=== PATIENT | male | born 1955 | race Caucasian/White ===

== ENCOUNTER 2018-11-02 20:44 | Emergency (ER) | payer SELFPAY ==
[2018-11-02 20:44] VITALS: BP 164/100; PULSE 104; RESP 22; TEMP 36; O2SAT 96; BMI 32.0
--- NOTE | 2018-11-02 21:08 | CT_ITS ---
STUDY: CT BRAIN WITHOUT CONTRAST REASON FOR EXAM: Male, 63 years old. Fall. Hit left eye laterally. RADIATION DOSAGE (If Supplied By Facility): CTDIvol = ( 44.99 ) mGy, DLP = ( 796.11 ) mGycm TECHNIQUE: Transaxial CT imaging of the brain was performed without administration of intravenous contrast material. Individualized dose optimization techniques were used for this CT. COMPARISON: February 25, 2016 FINDINGS: Normal soft tissue structures. Normal calvarium. Normal size ventricles and extra-axial spaces for the patient's age. Normal white matter tracts of the cerebral hemispheres. Normal basal ganglia and thalami. Normal brainstem. Normal cerebellum. There is no intracranial hemorrhage. There are no findings of an acute ischemic infarction. There is near complete opacification of the visualized left maxillary sinus. There is a rounded opacity within the visualized right maxillary sinus. CT/Brain/Head without Contrast IMPRESSION: No acute intracranial process. Opacification of the left maxillary sinus consistent with a history of sinusitis. Rounded opacity within the right maxillary sinus likely reflects a mucous retention cyst or polyp. Electronically Signed: Mckenna Ordonez MD at 21:51 EDT Tel , Service support ,
--- NOTE | 2018-11-02 21:09 | EKG12_ITS ---
Test Reason : HEAD INJURY Blood Pressure : / mmHG Vent. Rate : 091 BPM Atrial Rate : 091 BPM P-R Int : 138 ms QRS Dur : 080 ms QT Int : 330 ms P-R-T Axes : 031 -23 -68 degrees QTc Int : 405 ms Normal sinus rhythm ST & T wave abnormality, consider lateral ischemia Abnormal ECG Confirmed by NELSON LY, BEVERLY ([id number]), director sales and marketing TRICIA CAM ([id number] on 11/04/2018 4:23:32 PM Referred By: SHANT Confirmed By:BEVERLY DAMON MD
--- NOTE | 2018-11-02 21:09 | RAD_ITS ---
STUDY: X-RAY CHEST REASON FOR EXAM: Male, 63 years old. Passed out and fell after coughing fit. TECHNIQUE: Single frontal view of the chest. COMPARISON: January 29, 2016. FINDINGS: There is no new focal consolidation. Normal size heart. Normal mediastinum and toño. Normal visualized pulmonary arteries. Normal visualized aortic arch and descending thoracic aorta. There are diffuse degenerative changes of the visualized thoracic spine. There is a stable left posterior rib deformity consistent with a healed fracture. There is no demonstrated abnormality of the visualized soft tissue structures of the upper abdomen. RAD/Chest 1 View (Portable) IMPRESSION: No acute cardiopulmonary process. Electronically Signed: Mckenna Ordonez MD at 22:13 EDT Tel , Service support ,
[2018-11-02 21:24] LABS: Absolute Lymphocyte Count 3.22 X10^3/ul (0.83-4.51); Absolute Neutrophil Count 5.3 X10^3/uL (2.0-7.7); Basophil# 0.04 X10^3/uL; Basophil% 0.4 % (0-1); Eosinophil# 0.32 X10^3/uL; Eosinophils% 3.3 % (0-5); Hematocrit 40.4 % (40-54); Lymphocyte # 3.22 X10^3/ul (4.0); Lymphocyte % 33.2 % (19-41); Mean Corp Hgb Conc 32.2 g/gl (32-36); Mean Corpuscular Hgb 30.2 pg (27.0-32.0); Mean Platelet Vol. 9.2 fl (6.2-12.0); Monocyte# 0.84 X10^3/uL; Monocyte% 8.7 % (0-10); Neutrophil # 5.27 X10^3/uL (2.7-7.7); Neutrophil % 54.2 % (47-70); Platelet Count 313 K/mm3 (150-450); RBC Distribution Width CV 13.2 % (11.6-14.6); White Blood Count 9.7 K/mm3 (4.4-11.0)
[2018-11-02 21:29] LABS: POSITIVE COUNT NO; POSITIVE DIFFERENTIAL NO; POSITIVE MORPHOLOGY NO
[2018-11-02 22:02] LABS: Anion Gap 4 (5-15); BUN 14 mg/dL (7-18); BUN/Creat Ratio 12.3 RATIO (10-20); Calcium,Total 8.7 mg/dL (8.5-10.1); Chloride 105 mmol/L (98-107); Creatinine, Serum 1.14 mg/dL (0.70-1.30); EST Glomerular Filtration Rate 69 mL/min (>60); Est Glom Filt Rate - Afr Amer 84 mL/min (>60); Estimated Creatinine Clearance 63.62 ml/min; Glucose 104 mg/dL (74-106); Potassium 3.5 mmol/L (3.5-5.1); Sodium Level 138 mmol/L (136-145)
--- NOTE | 2018-11-02 22:54 | ED.VISSUMM ---
- ER Visit Summary Date of Service: 11/02/18 Chief Complaint: Fall History of Present Illness: The patient is a 63 M who fell today. This was after a coughing fit. He has a history of COPD and coughs frequently. He was sitting and then after coughing, he fell forward. He hit his head. He regained consciousness spontaneously. No other injuries or complaints. This has happened before after coughing episodes. He is denying any chest pain or shortness of breath. Denies any other symptoms Physical Examination: Afebrile and vital signs unremarkable. He has a 2 cm laceration over his left lateral eyebrow. His eye is unremarkable otherwise. HEENT exam otherwise unremarkable. Neck is nontender. Heart regular. Lungs clear. Skin appears normal otherwise. Cranial nerves grossly intact. Moves all extremities. No focal or lateralizing neurologic abnormalities grossly. Test Results: EKG shows sinus rhythm with a rate of 91. Nonspecific ST and T wave changes concerning for lateral ischemia, similar to prior EKG. Chest x-ray showed no acute abnormalities. CT brain showed sinusitis but no other acute pathology. CBC, metabolic panel, troponin normal. Emergency Department Course and Treatment: Patient presents after syncope. It was likely brought on from a coughing fit secondary to his COPD. Workup was unremarkable. Laceration was anesthetized with lidocaine, cleaned, explored, and sutured with 4 simple interrupted sutures. Patient was educated about suture care and will follow-up in 7 days for removal. I recommended admission for syncope. Patient declined admission and would like to follow-up as an outpatient. I advised that he can return at any time if he changes his mind. Treatment Plan: As above Disposition: Discharge Impression: 1. Cough 2. Syncope 3. Left eyebrow laceration 2 cm, simple This note was generated with [employer] dictation software. It may contain incorrect words, spelling, and punctuation that were not noted in review of the chart prior to signing ED Disposition - Plan for ED Patient: Referrals: Vickie Maya,Yaquelin Chery [Primary Care Provider] -
--- NOTE | 2018-11-02 22:58 | ED.DEP ---
ED Disposition - Plan for ED Patient: Instructions: ED Laceration All Referrals: Yaquelin Brown [Primary Care Provider] - 1 Week
[2018-11-02 23:07] VITALS: BP 144/98; PULSE 86; RESP 18; O2SAT 96
== END 2018-11-02 23:08 | disposition home or self-care (01) ==
PROVIDERS: Emergency Provider Emergency Medicine
DX: S01.112A Laceration without foreign body of left eyelid and periocular area, initial encounter (principal); W07.XXXA Fall from chair, initial encounter; Y93.89 Activity, other specified; Y92.9 Unspecified place or not applicable; R55 Syncope and collapse; J44.9 Chronic obstructive pulmonary disease, unspecified; I10 Essential (primary) hypertension; Z79.899 Other long term (current) drug therapy; Z72.0 Tobacco use
CPT/HCPCS: 12011; 70450; 71045; 80048; 84484; 85025; 93005; 99285; A4216

== ENCOUNTER 2019-01-19 09:08 | Inpatient (IN) | payer MEDICAID, SELFPAY ==
[2019-01-19] VITALS (36 sets, daily range): BP systolic 121–157; BP diastolic 69–106; PULSE 83–111; RESP 12–39; TEMP 36.4–37.1; O2SAT 84–98; BMI 31.6; BMI 31.1
--- NOTE | 2019-01-19 09:26 | RAD_ITS ---
STUDY: X-RAY CHEST REASON FOR EXAM: Male, 63 years old. Injected cough wheezing TECHNIQUE: Single AP portable view of the chest. COMPARISON: October 23, 2018, January 29, 2016 FINDINGS: There is a pattern of hyperlucency in the upper lung zones and increased linear markings in the lower lung zone suggestive of underlying chronic lung disease. Allowing for summation of shadows there is a nodular density within the right lower lobe that measures 8 mm. There is no demonstrated pleural abnormality. Normal size heart. Normal mediastinum and toño. Normal visualized pulmonary arteries. Normal visualized aortic arch and descending thoracic aorta. There are diffuse degenerative changes of the visualized thoracic spine. Normal visualized ribs, clavicles, and shoulders. There is no demonstrated abnormality of the visualized soft tissue structures of the upper abdomen. RAD/Chest 1 View (Portable) IMPRESSION: Findings suspicious for underlying emphysematous change chronic lung disease, there is a suggestion of a newly visualized nodule in the right lower lobe versus summation of shadows that measures 7.7 mm. Consider follow-up noncontrast CT chest for further evaluation of this and the lung parenchyma. There is no visualized new focal consolidation. Electronically Signed: Lian Torres MD at 9:53 EDT Tel , Service support ,
--- NOTE | 2019-01-19 09:27 | EKG12_ITS ---
Test Reason : SOB Blood Pressure : / mmHG Vent. Rate : 110 BPM Atrial Rate : 110 BPM P-R Int : 124 ms QRS Dur : 100 ms QT Int : 330 ms P-R-T Axes : 049 -81 092 degrees QTc Int : 446 ms Sinus tachycardia Possible Left atrial enlargement Left anterior fascicular block ST depression, consider subendocardial injury Abnormal QRS-T angle, consider primary T wave abnormality Abnormal ECG Confirmed by NELSON LY, BEVERLY ([id number]), fashion editor RIK NOVA ([id number]) on 01/20/2019 11:48:15 AM Referred By: BAMBI Confirmed By:BEVERLY DAMON MD
[2019-01-19] MEDS: MethylPREDNISolone 125 MG/2 ML Vial IV (09:33)
[2019-01-19] MEDS: Ipratropium/Albuterol Sulfate 3 ML AMPUL.NEB INHALATION ×4 (09:34→22:22)
[2019-01-19] MEDS: Albuterol 2.5 MG/3 ML VIAL.NEB. INHALATION ×2 (09:34)
[2019-01-19 09:36] LABS: Allen Test POS; Base Excess -2 mmol/L (-2 to +2); Bicarbonate 23.1 mmol/L (22-26); Blood Gas Specimen Type ART; O2 Delivery Device Nasal Can; PO2 93 mmHG (75-100); SITE R Radial; SO2 97 % (95-99); Time Given 922; Total Carbon Dioxide 24 mmol/L; pCO2 40.7 mmHg (35-45); pH 7.36 (7.35-7.45)
--- NOTE | 2019-01-19 09:36 | ED.VIS.GEN ---
History of Present Illness Chief Complaint: Shortness of Breath Informant: Patient, Family Onset: Days Context: Gradual Onset Timing: Continuous Quality: Increasing shortness of breath with productive cough Location: Not applicable Current Severity: Severe Maximum Severity: Severe Worsened by: Any activity Relieved by: Nothing Associated Symptoms: Productive cough and dyspnea on exertion Narrative: Patient is a 63-year-old male with history of hypertension, COPD who quit smoking 1 week ago presents with increased shortness of breath. He reports productive cough. He denies fever, chills night sweats. Denies rhinorrhea, congestion, postnasal drainage. Denies sore throat or change in voice. Denies ringing in his ears, decreased hearing or ear pain. He denies any ocular visual symptoms. He denies leg pain, swelling or discoloration. He denies history of PE or DVT. He was seen at [facility] 2 months ago and had a nuclear stress test that was negative. Prior similar symptoms: No Recent Illness/Hospitalization: Yes - 2 months ago [facility] - Past Medical History (1) Tobacco user Status: Chronic (2) Hypertension Status: Chronic (3) COLD (chronic obstructive lung disease) Status: Chronic Past Medical History - Allergies and Home Meds Allergies/Adverse Reactions: Allergies No Known Allergies Allergy (Verified 01/19/19 09:09) Primary Care Physician: Yaquelin Brown [Primary Care Provider] - Prior records reviewed: Yes Surgical History: herniorrhaphy Lives: With Family Smoking Status: Former smoker Alcohol: None Drugs: None Review of Systems General: Denies: Chills, Fever, Sweats Eyes: Denies: Visual changes - bilaterally, Blurred Vision - bilaterally, Diplopia ENT: Denies: Rhinorrhea, Sore throat Cardiovascular: Denies: Chest pain, Palpitations Respiratory: Reports: Dyspnea, Cough, Sputum, Dyspnea on exertion. Denies: Orthopnea, Paroxysmal nocturnal dyspnea, -, - Gastrointestinal: Denies: Abdominal pain, Nausea, Vomiting, Diarrhea, Melena, Hematochezia Genitourinary: Denies: Dysuria, Hematuria, Frequency Musculoskeletal: Denies: Back pain, Extremity Pain Skin: Denies: Rash, Wounds Neurological: Denies: Headache, Weakness, Numbness Hematologic: Denies: Easy bruising, Easy bleeding Allergy: Denies: Uticaria, Swelling of the mouth Physical Exam Vital Signs/Narrative: Vital Signs Temp Pulse Resp BP Pulse Ox 01/19/19 09:30 94 01/19/19 09:29 97 01/19/19 09:14 95 01/19/19 09:09 98.8 F 111 H 39 H 156/106 H 84 Inital Vital Signs reviewed: Yes - Paradoxical breathing noted General: Well nourished, Well developed, Obese, Acute Distress Head: Normocephalic, Atraumatic Eyes: Perrl, EOMI ENT: Moist mucous membranes, No rhinorrhea Neck: Supple, Nontender Cardiovascular: Regular rate, Regular rhythm, No murmurs Respiratory: Chest nontender, Wheezing, Diminished, Decreased Air Movement, - - Use of accessory muscles and paradoxical breathing. Negative for: No distress, CTA bilaterally Abdomen: Soft, Nontender, Nondistended, Normal bowel sounds, No masses Back: Nontender, Normal Inspection Extremities: Nontender, No edema Skin: Normal color, No rash, Diaphoresis, No Trauma. Negative for: Cyanosis, Jaundice Neurological: Alert, Oriented x3, Cranial nerves II-XII grossly intact, Normal Strength, Normal Sensation Psychological: Normal affect, Normal Mood Diagnostic/Tx/Re-eval Chest X-Ray - ED: 1 View, Read by ED Physician, Unchanged, Normal, Heart, Mediastinum, Bony Structures, No Acute Disease, Chronic Changes Impressions Chest X-Ray 01/19/19 09:26 IMPRESSION: Findings suspicious for underlying emphysematous change chronic lung disease, there is a suggestion of a newly visualized nodule in the right lower lobe versus summation of shadows that measures 7.7 mm. Consider follow-up noncontrast CT chest for further evaluation of this and the lung parenchyma. There is no visualized new focal consolidation. Electronically Signed: Lian Torres MD at 9:53 EDT Tel , Service support , 01/19/19 09:26 Chest 1 View (Portable) [RAD] Stat Laboratory Results 01/19/19 01/19/19 01/19/19 09:13 09:13 09:13 WBC 13.5 H RBC 4.90 Hgb 14.9 Hct 44.6 MCV 91.0 MCH 30.4 MCHC 33.4 RDW 13.6 RDW Differential 44.9 H Plt Count 239 MPV 9.8 Specimen Type Sample Site pH Bicarbonate Actual POC Total CO2 Base Excess O2 Saturation ABG pCO2 ABG pO2 Steven Test O2 Delivery Device Liter Flow Blood Gas Notified Whom Blood Gas Notified Time Sodium 135 L Potassium 4.0 Chloride 101 Carbon Dioxide 25.0 Anion Gap 9 BUN 13 Creatinine 1.08 Estim Creat Clear Calc 67.15 Est GFR (MDRD) Af Amer 89 Est GFR (MDRD) Non-Af 74 BUN/Creatinine Ratio 12.0 Glucose 103 Lactic Acid 0.9 Calcium 8.4 L Total Bilirubin 0.50 AST 28 ALT 25 Alkaline Phosphatase 66 Troponin I < 0.015 Total Protein 7.5 Albumin 3.3 Globulin 4.2 Albumin/Globulin Ratio 0.8 L 01/19/19 09:29 WBC RBC Hgb Hct MCV MCH MCHC RDW RDW Differential Plt Count MPV Specimen Type ART Sample Site R Radial pH 7.36 Bicarbonate Actual 23.1 POC Total CO2 24 Base Excess -2 O2 Saturation 97 ABG pCO2 40.7 ABG pO2 93 Steven Test POS O2 Delivery Device Nasal Can Liter Flow 3.0 Blood Gas Notified Whom ED MD Blood Gas Notified Time 922 Sodium Potassium Chloride Carbon Dioxide Anion Gap BUN Creatinine Estim Creat Clear Calc Est GFR (MDRD) Af Amer Est GFR (MDRD) Non-Af BUN/Creatinine Ratio Glucose Lactic Acid Calcium Total Bilirubin AST ALT Alkaline Phosphatase Troponin I Total Protein Albumin Globulin Albumin/Globulin Ratio - Medical Decision Making With history of COPD productive cough wheezing and respiratory distress will obtain ABG to assess acid base status as well as CO2. Chest x-rays obtained to assess for pneumonia and pneumothorax. EKG to evaluate for cardiac ischemia. Appropriate blood work to assess white count, H&H, renal function. He was treated with DuoNeb and 3 albuterol treatments. He also received Solu-Medrol IV push. ABG reveals a pH of 7.36, PCO2 of 40.7, PaO2 of 93 and bicarb of 23.1 on 3 L by nasal cannula. This reveals an AA gradient and one would expect CO2 to be much higher than 40.7 in light of him breathing 40 times a minute. Patient has received all aerosol treatments. He still has paradoxical breathing. Will place on BiPAP and contact hospitalist for admission. Since he has a productive cough will treat with antibiotics. Since he is in respiratory distress will give antibiotics intravenously. Troponin was normal. EKG revealed no acute process. Lactate was normal. - Critical Care Time Critical care time (excluding procedures): 30-74 minutes - 32 minutes, Discussing w/Patient &/or Family/Food Inspector, Discussing w/Consultants, Arranging Admission or Transfer ED Disposition - Plan for ED Patient: Disposition: Acute Care Hospital [facility] Diagnosis: Acute respiratory failure with hypoxia, Acute exacerbation of chronic obstructive pulmonary disease (COPD) Referrals: Vickie Maya,Yaquelin Chery [Primary Care Provider] -
[2019-01-19 09:38] LABS: Hematocrit 44.6 % (40-54); Hemoglobin 14.9 g/dl (13.0-16.5); Mean Corp Hgb Conc 33.4 g/gl (32-36); Mean Corpuscular Hgb 30.4 pg (27.0-32.0); Mean Platelet Vol. 9.8 fl (6.2-12.0); Platelet Count 239 K/mm3 (150-450); RBC Distribution Width CV 13.6 % (11.6-14.6); RBC Distribution Width SD 44.9 fl (35.1-43.9); White Blood Count 13.5 K/mm3 (4.4-11.0)
[2019-01-19 09:40] LABS: Scan Indicated on CBC? Y/N NO
--- NOTE | 2019-01-19 09:41 | ED.DCSUM_ITS ---
History of Present Illness Chief Complaint: Shortness of Breath Informant: Patient, Family Onset: Days Context: Gradual Onset Timing: Continuous Quality: Increasing shortness of breath with productive cough Location: Not applicable Current Severity: Severe Maximum Severity: Severe Worsened by: Any activity Relieved by: Nothing Associated Symptoms: Productive cough and dyspnea on exertion Narrative: Patient is a 63-year-old male with history of hypertension, COPD who quit smoking 1 week ago presents with increased shortness of breath. He reports productive cough. He denies fever, chills night sweats. Denies rhinorrhea, congestion, postnasal drainage. Denies sore throat or change in voice. Denies ringing in his ears, decreased hearing or ear pain. He denies any ocular visual symptoms. He denies leg pain, swelling or discoloration. He denies history of PE or DVT. He was seen at [facility] 2 months ago and had a nuclear stress test that was negative. Prior similar symptoms: No Recent Illness/Hospitalization: Yes - 2 months ago [facility] - Past Medical History (1) Tobacco user Status: Chronic (2) Hypertension Status: Chronic (3) COLD (chronic obstructive lung disease) Status: Chronic Past Medical History - Allergies and Home Meds Allergies/Adverse Reactions: Allergies No Known Allergies Allergy (Verified 01/19/19 09:09) Primary Care Physician: Yaquelin Brown [Primary Care Provider] - Prior records reviewed: Yes Surgical History: herniorrhaphy Lives: With Family Smoking Status: Former smoker Alcohol: None Drugs: None Review of Systems General: Denies: Chills, Fever, Sweats Eyes: Denies: Visual changes - bilaterally, Blurred Vision - bilaterally, Diplopia ENT: Denies: Rhinorrhea, Sore throat Cardiovascular: Denies: Chest pain, Palpitations Respiratory: Reports: Dyspnea, Cough, Sputum, Dyspnea on exertion. Denies: Orthopnea, Paroxysmal nocturnal dyspnea, -, - Gastrointestinal: Denies: Abdominal pain, Nausea, Vomiting, Diarrhea, Melena, Hematochezia Genitourinary: Denies: Dysuria, Hematuria, Frequency Musculoskeletal: Denies: Back pain, Extremity Pain Skin: Denies: Rash, Wounds Neurological: Denies: Headache, Weakness, Numbness Hematologic: Denies: Easy bruising, Easy bleeding Allergy: Denies: Uticaria, Swelling of the mouth Physical Exam Vital Signs/Narrative: Vital Signs Temp Pulse Resp BP Pulse Ox 01/19/19 09:30 94 01/19/19 09:29 97 01/19/19 09:14 95 01/19/19 09:09 98.8 F 111 H 39 H 156/106 H 84 Inital Vital Signs reviewed: Yes - Paradoxical breathing noted General: Well nourished, Well developed, Obese, Acute Distress Head: Normocephalic, Atraumatic Eyes: Perrl, EOMI ENT: Moist mucous membranes, No rhinorrhea Neck: Supple, Nontender Cardiovascular: Regular rate, Regular rhythm, No murmurs Respiratory: Chest nontender, Wheezing, Diminished, Decreased Air Movement, - - Use of accessory muscles and paradoxical breathing. Negative for: No distress, CTA bilaterally Abdomen: Soft, Nontender, Nondistended, Normal bowel sounds, No masses Back: Nontender, Normal Inspection Extremities: Nontender, No edema Skin: Normal color, No rash, Diaphoresis, No Trauma. Negative for: Cyanosis, Jaundice Neurological: Alert, Oriented x3, Cranial nerves II-XII grossly intact, Normal Strength, Normal Sensation Psychological: Normal affect, Normal Mood Diagnostic/Tx/Re-eval Chest X-Ray - ED: 1 View, Read by ED Physician, Unchanged, Normal, Heart, Mediastinum, Bony Structures, No Acute Disease, Chronic Changes Impressions Chest X-Ray 01/19/19 09:26 IMPRESSION: Findings suspicious for underlying emphysematous change chronic lung disease, there is a suggestion of a newly visualized nodule in the right lower lobe versus summation of shadows that measures 7.7 mm. Consider follow-up noncontrast CT chest for further evaluation of this and the lung parenchyma. There is no visualized new focal consolidation. Electronically Signed: Lian Torres MD at 9:53 EDT Tel , Service support , 01/19/19 09:26 Chest 1 View (Portable) [RAD] Stat Laboratory Results 01/19/19 01/19/19 01/19/19 09:13 09:13 09:13 WBC 13.5 H RBC 4.90 Hgb 14.9 Hct 44.6 MCV 91.0 MCH 30.4 MCHC 33.4 RDW 13.6 RDW Differential 44.9 H Plt Count 239 MPV 9.8 Specimen Type Sample Site pH Bicarbonate Actual POC Total CO2 Base Excess O2 Saturation ABG pCO2 ABG pO2 Steven Test O2 Delivery Device Liter Flow Blood Gas Notified Whom Blood Gas Notified Time Sodium 135 L Potassium 4.0 Chloride 101 Carbon Dioxide 25.0 Anion Gap 9 BUN 13 Creatinine 1.08 Estim Creat Clear Calc 67.15 Est GFR (MDRD) Af Amer 89 Est GFR (MDRD) Non-Af 74 BUN/Creatinine Ratio 12.0 Glucose 103 Lactic Acid 0.9 Calcium 8.4 L Total Bilirubin 0.50 AST 28 ALT 25 Alkaline Phosphatase 66 Troponin I < 0.015 Total Protein 7.5 Albumin 3.3 Globulin 4.2 Albumin/Globulin Ratio 0.8 L 01/19/19 09:29 WBC RBC Hgb Hct MCV MCH MCHC RDW RDW Differential Plt Count MPV Specimen Type ART Sample Site R Radial pH 7.36 Bicarbonate Actual 23.1 POC Total CO2 24 Base Excess -2 O2 Saturation 97 ABG pCO2 40.7 ABG pO2 93 Steven Test POS O2 Delivery Device Nasal Can Liter Flow 3.0 Blood Gas Notified Whom ED MD Blood Gas Notified Time 922 Sodium Potassium Chloride Carbon Dioxide Anion Gap BUN Creatinine Estim Creat Clear Calc Est GFR (MDRD) Af Amer Est GFR (MDRD) Non-Af BUN/Creatinine Ratio Glucose Lactic Acid Calcium Total Bilirubin AST ALT Alkaline Phosphatase Troponin I Total Protein Albumin Globulin Albumin/Globulin Ratio - Medical Decision Making With history of COPD productive cough wheezing and respiratory distress will obtain ABG to assess acid base status as well as CO2. Chest x-rays obtained to assess for pneumonia and pneumothorax. EKG to evaluate for cardiac ischemia. Appropriate blood work to assess white count, H&H, renal function. He was treated with DuoNeb and 3 albuterol treatments. He also received Solu- Medrol IV push. ABG reveals a pH of 7.36, PCO2 of 40.7, PaO2 of 93 and bicarb of 23.1 on 3 L by nasal cannula. This reveals an AA gradient and one would expect CO2 to be much higher than 40.7 in light of him breathing 40 times a minute. Patient has received all aerosol treatments. He still has paradoxical breathing. Will place on BiPAP and contact hospitalist for admission. Since he has a productive cough will treat with antibiotics. Since he is in respiratory distress will give antibiotics intravenously. Troponin was normal. EKG revealed no acute process. Lactate was normal. - Critical Care Time Critical care time (excluding procedures): 30-74 minutes - 32 minutes, Discussing w/Patient &/or Family/Field Mechanic/Site Lead, Discussing w/Consultants, Arranging Admission or Transfer ED Disposition - Plan for ED Patient: Disposition: Acute Care Hospital [facility] Diagnosis: Acute respiratory failure with hypoxia, Acute exacerbation of chronic obstructive pulmonary disease (COPD) Referrals: Vickie Maya,Yaquelin Chery [Primary Care Provider] -
[2019-01-19 09:52] LABS: ALB/GLOB Ratio 0.8 RATIO (0.9-2.4); AST(SGOT) 28 U/L (15-37); Alanine Aminotransfer ALT/SGPT 25 U/L (16-61); Albumin, Serum 3.3 g/dL (3.2-5.0); Alkaline Phosphatase 66 U/L (45-117); Anion Gap 9 (5-15); BUN 13 mg/dL (7-18); Calcium,Total 8.4 mg/dL (8.5-10.1); Chloride 101 mmol/L (98-107); Creatinine, Serum 1.08 mg/dL (0.70-1.30); EST Glomerular Filtration Rate 74 mL/min (>60); Est Glom Filt Rate - Afr Amer 89 mL/min (>60); Estimated Creatinine Clearance 67.15 ml/min; Globulin 4.2 g/dL (2.2-4.2); Glucose 103 mg/dL (74-106); Protein, Total 7.5 g/dL (6.4-8.2); Sodium Level 135 mmol/L (136-145)
[2019-01-19 09:54] LABS: Lactic Acid 0.9 mmol/L (0.4-2.0)
--- NOTE | 2019-01-19 11:49 | HP.PCM_ITS ---
Problem List (1) Acute respiratory failure with hypoxia Status: Acute (2) Acute exacerbation of chronic obstructive pulmonary disease (COPD) Status: Chronic (3) Hypertension Status: Chronic History of Present Illness Date of Admission: 01/19/19 Chief Complaint: Shortness of breath The patient is a 63 year old M with PMH as below who presents with shortness of breath, and diaphoresis since last night. He states that he used to be a smoker but he is quit 1 week ago and has a history of COPD and was tried using inhalers last night and felt that he might be getting worse and so this morning he presented to the ER. He states that he is significantly short of breath and it was noted that he was having increased work of breathing when he was here in the ER. Chest x-ray demonstrated a possible nodule measuring around 8 mm. He has slight leukocytosis to 13.5 but no other signs of infection, ABG was unremarkable and his other lab work appeared to be normal. He was placed on BiPAP in the ER for significant work of breathing. He denies any recent illnesses or upper respiratory infections. Past Medical History Past Medical History (Chronic Problems): Chronic Problems Acute exacerbation of chronic obstructive pulmonary disease (COPD) (Chronic) Tobacco user (Chronic) Hypertension (Chronic) COLD (chronic obstructive lung disease) (Chronic) Allergies No Known Allergies Allergy (Verified 01/19/19 09:09) Home Medications: Ambulatory Orders Medication Instructions Recorded Albuterol Aerosols [Ventolin 2.5 mg INHALATION Q6H PRN PRN 11/02/18 Aerosols] Cholecalciferol (VIT D3) [Vitamin 1,000 unit PO BID 11/02/18 D] Fluticasone 0.05% [Flonase Nasal 1 spray NASAL DAILY 11/02/18 [place]] Lisinopril/Hydrochlorothiazide 1 each PO DAILY 11/02/18 [Lisinopril-Hctz 20-12.5 mg Tab] Loratadine [Claritin] 10 mg PO DAILY 11/02/18 Omeprazole [Prilosec] 20 mg PO DAILY 11/02/18 Aspirin [Aspirin, Baby] 81 mg PO DAILY@0800 01/19/19 Budesonide Aerosol [Pulmicort 0.5 mg INHALATION DAILY 01/19/19 Aerosol] Surgical History: herniorrhaphy Lives: With Family Smoking Status: Former smoker Tobacco Use: Cigarettes Alcohol: None Drugs: None - *Family History Maternal History Items: Heart Disease Paternal History Items: Stroke Review of Systems Constitutional: Denies: Chills, Fever, Weight Change HEENT: Denies: Head Aches, Sinus Congestion, Sinus Drainage Cardiovascular: Denies: Chest Pain, Palpitations Respiratory: Reports: Cough, Shortness of Breath, Sputum production. Denies: Shortness of breath at rest Gastrointestinal: Denies: Abdominal Pain, Nausea, Vomiting Genitourinary: Denies: Dysuria Musculoskeletal: Denies: Joint Pain, Joint Tenderness Skin: Denies: Rash, Wounds Neurological: Denies: Numbness, Tingling, Focal weakness Psychiatric: Denies: Anxiety, Depression Hematologic/ Lymphatic: Denies: Easy Bruising, Easy Bleeding VTE Information - Inpt Only VTE Present on Admission: No Patient Problems: Active and Suspected Problems Acute respiratory failure with hypoxia (Acute) - Physical Exam General: Alert, Oriented x3, Cooperative, - - Mild distress HEENT: Atraumatic, PERRLA, EOMI, Normocephalic Oral: Dry Mucosa Neck: Supple, No JVD Lungs: Diminished, Short of Breath, Tachypneic, Using Accessory Muscles, Wheezes Cardiovascular: Regular Rhythm, Normal S1, Normal S2, No murmurs, Tachycardic Abdomen: Soft, Non Tender, Non-Distended, No Hepato-splenomegaly Extremities: No edema, Capillary Refill Less than 3 Seconds Skin: No rashes, No breakdown Neurological: Neuro grossly intact, Sensory exam intact to light touch and pain Psych/Mental Status: Normal Affect, Appropriate Vital Signs Temp Pulse Resp BP Pulse Ox 98.7 F 103 H 23 H 136/90 H 95 01/19/19 10:25 01/19/19 10:46 01/19/19 10:46 01/19/19 10:46 01/19/19 10:46 Oxygen Flow Rate (L/min) 3 Oxygen Delivery Method Bi-pap Weight: 198 lb 13.711 oz Body Mass Index (BMI) 31.1 Laboratory Tests Past 24 Hrs 01/19/19 01/19/19 01/19/19 09:13 09:13 09:13 WBC 13.5 H RBC 4.90 Hgb 14.9 Hct 44.6 MCV 91.0 MCH 30.4 MCHC 33.4 RDW 13.6 RDW Differential 44.9 H Plt Count 239 MPV 9.8 Specimen Type Sample Site pH Bicarbonate Actual POC Total CO2 Base Excess O2 Saturation ABG pCO2 ABG pO2 Steven Test O2 Delivery Device Liter Flow Blood Gas Notified Whom Blood Gas Notified Time Sodium 135 L Potassium 4.0 Chloride 101 Carbon Dioxide 25.0 Anion Gap 9 BUN 13 Creatinine 1.08 Estim Creat Clear Calc 67.15 Est GFR (MDRD) Af Amer 89 Est GFR (MDRD) Non-Af 74 BUN/Creatinine Ratio 12.0 Glucose 103 Lactic Acid 0.9 Calcium 8.4 L Total Bilirubin 0.50 AST 28 ALT 25 Alkaline Phosphatase 66 Troponin I < 0.015 Total Protein 7.5 Albumin 3.3 Globulin 4.2 Albumin/Globulin Ratio 0.8 L 01/19/19 09:29 WBC RBC Hgb Hct MCV MCH MCHC RDW RDW Differential Plt Count MPV Specimen Type ART Sample Site R Radial pH 7.36 Bicarbonate Actual 23.1 POC Total CO2 24 Base Excess -2 O2 Saturation 97 ABG pCO2 40.7 ABG pO2 93 Steven Test POS O2 Delivery Device Nasal Can Liter Flow 3.0 Blood Gas Notified Whom ED MD Blood Gas Notified Time 922 Sodium Potassium Chloride Carbon Dioxide Anion Gap BUN Creatinine Estim Creat Clear Calc Est GFR (MDRD) Af Amer Est GFR (MDRD) Non-Af BUN/Creatinine Ratio Glucose Lactic Acid Calcium Total Bilirubin AST ALT Alkaline Phosphatase Troponin I Total Protein Albumin Globulin Albumin/Globulin Ratio Assessment/Plan All Active Problems Acute respiratory failure with hypoxia (Acute) 1. Acute hypoxic respiratory failure secondary to an acute COPD exacerbation -He is on Pulmicort and albuterol as an outpatient -We will continue with Solu-Medrol and his inhaled Pulmicort here as an inpatient -Continue with DuoNeb -We will place on BiPAP for comfort at the moment as he states that he was breathing better with it than when he was just on nasal cannula, his pulse ox was 84% on room air in the ER 2. HTN -Blood pressure appears to be stable -Tinea with his home lisinopril and hydrochlorothiazide 3. GERD -Stable -Continue with PPI DVT: Lovenox Code Visit Inpatient E&M: 92886 Init Hosp L3
[2019-01-19] MEDS: 0.9% Normal Saline 1,000 ML 75 ML IV (12:41)
[2019-01-19] MEDS: Polyethylene Glycol 3350 17 GM PACKET PO (14:52)
[2019-01-19] MEDS: 0.9% NaCl Peripheral Flush Adult/Peds IV (21:44)
[2019-01-20] VITALS (33 sets, daily range): BP systolic 112–141; BP diastolic 29–96; PULSE 68–98; RESP 12–29; TEMP 36.3–37.2; O2SAT 87–100
[2019-01-20] MEDS: 0.9% Normal Saline 1,000 ML 75 ML IV ×2 (01:23→16:21)
[2019-01-20] MEDS: 0.9% NaCl Peripheral Flush Adult/Peds IV (05:49)
[2019-01-20] MEDS: Budesonide Respules 0.5 MG/2 ML AMPUL.NEB. INHALATION (06:35)
[2019-01-20] MEDS: Ipratropium/Albuterol Sulfate 3 ML AMPUL.NEB INHALATION ×5 (06:35→23:13)
[2019-01-20 06:46] LABS: Absolute Lymphocyte Count 1.36 X10^3/ul (0.83-4.51); Absolute Neutrophil Count 14.5 X10^3/uL (2.0-7.7); Basophil# 0.02 X10^3/uL; Basophil% 0.1 % (0-1); Hematocrit 44.4 % (40-54); Hemoglobin 14.4 g/dl (13.0-16.5); Lymphocyte # 1.36 X10^3/ul (4.0); Lymphocyte % 8.2 % (19-41); Mean Corp Hgb Conc 32.4 g/gl (32-36); Mean Corpuscular Hgb 29.9 pg (27.0-32.0); Mean Corpuscular Volume 92.3 fL (80-94); Mean Platelet Vol. 10.5 fl (6.2-12.0); Monocyte# 0.64 X10^3/uL; Monocyte% 3.9 % (0-10); Neutrophil # 14.54 X10^3/uL (2.7-7.7); Neutrophil % 87.5 % (47-70); Platelet Count 226 K/mm3 (150-450); RBC Distribution Width CV 13.7 % (11.6-14.6); RBC Distribution Width SD 46.2 fl (35.1-43.9); Red Blood Count 4.81 M/mm3 (4.6-6.2); White Blood Count 16.6 K/mm3 (4.4-11.0)
[2019-01-20 06:57] LABS: POSITIVE COUNT NO; POSITIVE DIFFERENTIAL NO; POSITIVE MORPHOLOGY NO
[2019-01-20 06:58] LABS: Anion Gap 11 (5-15); BUN 19 mg/dL (7-18); BUN/Creat Ratio 16.8 RATIO (10-20); Calcium,Total 8.8 mg/dL (8.5-10.1); Chloride 106 mmol/L (98-107); Creatinine, Serum 1.13 mg/dL (0.70-1.30); EST Glomerular Filtration Rate 70 mL/min (>60); Est Glom Filt Rate - Afr Amer 85 mL/min (>60); Estimated Creatinine Clearance 64.18 ml/min; Glucose 138 mg/dL (74-106); Potassium 4.2 mmol/L (3.5-5.1); Sodium Level 141 mmol/L (136-145)
[2019-01-20] MEDS: Fluticasone 0.05% 1 SPRAY NASAL.SRY NASAL (08:35)
[2019-01-20] MEDS: Aspirin 81 MG TAB.CHEW PO (08:35)
[2019-01-20] MEDS: Loratadine 10 MG Tablet PO (08:35)
[2019-01-20] MEDS: hydroCHLOROthiazide 12.5mg 12.5 MG PO (08:36)
[2019-01-20] MEDS: Enoxaparin 40 MG/0.4 ML Syringe SC (08:36)
[2019-01-20] MEDS: Lisinopril 20 MG Tablet PO (08:37)
[2019-01-20] MEDS: Pantoprazole Sodium 20 MG Tablet PO (08:41)
--- NOTE | 2019-01-20 08:54 | PCM.PROGNOTE ---
Patient Problems: Active and Suspected Problems Acute respiratory failure with hypoxia (Acute) Subjective: Mr. Kurtz is a 63-year-old male who presented to the emergency department at [facility] on 01/19/2019 complaining of increased work of breathing associated with sweating that began the preceding night. Past medical history is significant for COPD, tobacco abuse, hypertension and obesity. Pulse ox on room air in the emergency department was 84%. He was afebrile with a pulse rate of 111 and a blood pressure of 156/106. The respiratory rate was 39. He was placed on BiPAP in the emergency department. Chest x-ray showed possible 8 mm nodular lesion in the right lower lobe versus summation of shadows per radiologist. White blood cell count was 13.5 and hemoglobin and platelets were within normal limits. An ABG done on a 3 L nasal cannula showed a pH of 7.36 with PCO2 of 40.7 and a PO2 of 93. BMP was unremarkable. LFTs were within normal limits and the troponin was less than 0.015. He was admitted to a monitored bed on PCU with a diagnosis of acute hypoxic respiratory failure requiring BiPAP rescue secondary to acute exacerbation of COPD. Solu-Medrol 40 mg IV every 8 hours was initiated and he was placed on DuoNeb aerosols every 4 hours and as needed albuterol. Afebrile since admission Blood pressure and heart rate are stable. Current pulse ox is 87 to 95% on a 3 L nasal cannula with a respiratory rate ranging from 24-29. All lab was personally reviewed. He has recently seen a shirt marker in [place] and was told he has COPD. He quit smoking 1 week ago and since then has been coughing up a lot of green/yellow sputum. Has had subjective fevers and shaking chills. Tells me he had a stress test in [place] and his heart checked out good. Has CP with coughing and his abdomen is distended with air. Had increased SOB and increased RR today after breakfast and had to be placed back on BIPAP....tells me it helps a lot. Has never had a sleep study. Objective: General: Alert, oriented ?3, cooperative, pleasant and appropriate, currently on BIPAP and he is still tachypneic Neck: Supple, trachea midline, no enlarged cervical nodes, no enlarged supraclavicular nodes Lungs: diminished, symmetric chest expansion, tachypneic, + conversational dyspnea and accessory muscle use. + wheezing. sputum is dark yellow/green and thick Heart: Regular rate and rhythm, normal S1, normal S2, no murmur, no gallop, no rub, distant heart sounds Abdomen: Soft, distended and hypertympanic, bowel sounds present, umbilical hernia present, positive pain with percussion over the upper abdomen. Extremities: No clubbing, no peripheral edema, no cyanosis, negative Homans, negative Mario - Physical Exam Vital Signs Temp Pulse Resp BP Pulse Ox 98.1 F 90 29 H 130/29 H 95 01/20/19 08:00 01/20/19 08:00 01/20/19 08:28 01/20/19 08:00 01/20/19 08:00 Oxygen Flow Rate (L/min) 3 Oxygen Delivery Method Nasal Cannula Weight: 198 lb 13.711 oz Body Mass Index (BMI) 31.1 Intake and Output for Last 24 Hours 01/18/19 01/19/19 01/20/19 23:59 23:59 23:59 Intake Total 1353 / 1353 1171 / 1171 Output Total 375 / 375 Balance 978 / 978 1171 / 1171 Laboratory Tests Past 24 Hrs 01/19/19 01/19/19 01/19/19 09:13 09:13 09:13 WBC 13.5 H RBC 4.90 Hgb 14.9 Hct 44.6 MCV 91.0 MCH 30.4 MCHC 33.4 RDW 13.6 RDW Differential 44.9 H Plt Count 239 MPV 9.8 Immature Gran % (Auto) Neut % (Auto) Lymph % (Auto) Stearns % (Auto) Eos % (Auto) Baso % (Auto) Absolute Neuts (auto) Absolute Lymphs (auto) Total Counted Specimen Type Sample Site pH Bicarbonate Actual POC Total CO2 Base Excess O2 Saturation ABG pCO2 ABG pO2 Steven Test O2 Delivery Device Liter Flow Blood Gas Notified Whom Blood Gas Notified Time Sodium 135 L Potassium 4.0 Chloride 101 Carbon Dioxide 25.0 Anion Gap 9 BUN 13 Creatinine 1.08 Estim Creat Clear Calc 67.15 Est GFR (MDRD) Af Amer 89 Est GFR (MDRD) Non-Af 74 BUN/Creatinine Ratio 12.0 Glucose 103 Lactic Acid 0.9 Calcium 8.4 L Total Bilirubin 0.50 AST 28 ALT 25 Alkaline Phosphatase 66 Troponin I < 0.015 Total Protein 7.5 Albumin 3.3 Globulin 4.2 Albumin/Globulin Ratio 0.8 L 01/19/19 01/20/19 01/20/19 09:29 06:05 06:05 WBC 16.6 H RBC 4.81 Hgb 14.4 Hct 44.4 MCV 92.3 MCH 29.9 MCHC 32.4 RDW 13.7 RDW Differential 46.2 H Plt Count 226 MPV 10.5 Immature Gran % (Auto) 0.300 Neut % (Auto) 87.5 H Lymph % (Auto) 8.2 L Stearns % (Auto) 3.9 Eos % (Auto) 0.0 Baso % (Auto) 0.1 Absolute Neuts (auto) 14.5 H Absolute Lymphs (auto) 1.36 Total Counted Not Reportable Specimen Type ART Sample Site R Radial pH 7.36 Bicarbonate Actual 23.1 POC Total CO2 24 Base Excess -2 O2 Saturation 97 ABG pCO2 40.7 ABG pO2 93 Steven Test POS O2 Delivery Device Nasal Can Liter Flow 3.0 Blood Gas Notified Whom ED MD Blood Gas Notified Time 922 Sodium 141 Potassium 4.2 Chloride 106 Carbon Dioxide 24.0 Anion Gap 11 BUN 19 H Creatinine 1.13 Estim Creat Clear Calc 64.18 Est GFR (MDRD) Af Amer 85 Est GFR (MDRD) Non-Af 70 BUN/Creatinine Ratio 16.8 Glucose 138 H Lactic Acid Calcium 8.8 Total Bilirubin AST ALT Alkaline Phosphatase Troponin I Total Protein Albumin Globulin Albumin/Globulin Ratio Medical Necessity - Tobacco Use Smoking Status: Former smoker Tobacco Use: Cigarettes Assessment/Plan All Active Problems Acute respiratory failure with hypoxia (Acute) Impressions 1. Acute hypoxic respiratory failure requiring BiPAP 2. Suspected bibasilar pneumonia, right greater than left 3. Acute exacerbation of COPD 4. Obesity 5. Tobacco dependence-quit 1 week prior to admission Add albuterol aerosols every 2 hours as needed dyspnea/wheezing BiPAP as needed, nasal cannula with meals Mucinex 1200 mg p.o. twice daily sputum for Gram stain, C&S Levaquin 750 mg daily x5 days To eat small meals more frequently to decrease the work of breathing with eating Discontinue budesonide as patient is on Solu-Medrol 40 mg IV every 8 Discontinue Claritin + Methacholine for gaseous distention of the abdomen likely secondary to aerophagia Discontinue hydrochlorothiazide and continue hydration Code Visit Inpatient E&M: 28697 Subs Hosp L3
[2019-01-20] MEDS: Albuterol 2.5 MG/3 ML VIAL.NEB. INHALATION (09:50)
[2019-01-20] MEDS: levoFLOXacin IV 750 MG/150 ML BAG 100 MG IV (10:37)
[2019-01-20] MEDS: Polyethylene Glycol 3350 17 GM PACKET PO (10:37)
[2019-01-20] MEDS: guaiFENesin 1,200 MG Tablet 1200 MG PO ×2 (10:37→21:52)
--- NOTE | 2019-01-20 12:01 | CASEMGMT ---
ENRRIQUE MIRZA assessment: Face to Face with patient for initial transition planning/care coordination assessment. ENRRIQUE MIRZA introduced self and role at [facility], pt voices understanding and consents to assessment at this time. Pt is sitting up in bed in no distress at this time. Pt is A/Ox4 at this time and answers all questions appropriately at this time. Care providers, pharmacy, and demographics verified at this time. PCP: Yaquelin Chery Specialists: Pt states no current specialists at this time. Preferred [facility]acy: [facility] Insurance: Self-pay Prescription Benefit: Self-pay Living Will/HPOA: Pt states does not currently have LW/HPOA but pt states that his daughter is 'working on.' Pt states 'I don't read/write well, so she helps me out with that stuff.' Pt declines further info at this time. LNOK: Benjamin Benjamin, sig other; Lucero Kurtz, daughter Living Arrangements: Pt states lives with sig other in apt with flight of stairs to 2nd floor and states no concerns at home at this time. Pt states is independent with ADL's. Transportation: Pt states drives self and states no transportation concerns at this time. DME/HHC: Pt states no current DME or need for any at this time. Pt states no hx of HHC or SNF in the past. Pt is aware of approximate anglin for home oxygen, if needed at discharge and states 'I will just have to take care of it and not pay some other stuff.' Nguyễn SW aware of self pay and that pt would like any resources that can be provided. Pt states no concerns with going home at time of discharge. 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 Pt states quit smoking cigarettes about 1 week ago and states smoked about 1-1.5packs/day previously. Pt states drinks ETOH occasionally. Pt states no further questions/concerns/needs at this time. CM to follow for home oxygen and for any further discharge planning/needs. Advised pt to ask for CM if any further questions/concerns/needs arise, voices understanding. Pt Goal: Home Plan: Home, possible home oxygen. SStaten ENRRIQUE MIRZA
--- NOTE | 2019-01-20 14:14 | CASEMGMT ---
SW spoke with patient as he is self pay. SW spoke with him about his medications mostly as Patient Financial Services already talked with him about hospital bill. He said he is managing getting his meds, but some of them are expensive. SW told him SW will put together some resources. He said he does not read or write well so his daughter helps him with that kind of stuff. SW told him that is ok SW can leave it in the room for his daughter when she comes back to visit. Selena BALTAZAR MSW
[2019-01-21] VITALS (23 sets, daily range): BP systolic 106–148; BP diastolic 74–96; PULSE 68–94; RESP 12–25; TEMP 36.1–36.7; O2SAT 95–100
[2019-01-21] MEDS: 0.9% Normal Saline 1,000 ML 75 ML IV ×2 (05:03→19:02)
[2019-01-21] MEDS: Ipratropium/Albuterol Sulfate 3 ML AMPUL.NEB INHALATION ×5 (06:43→23:32)
[2019-01-21] MEDS: Aspirin 81 MG TAB.CHEW PO (08:20)
[2019-01-21] MEDS: Fluticasone 0.05% 1 SPRAY NASAL.SRY NASAL (09:59)
[2019-01-21] MEDS: Enoxaparin 40 MG/0.4 ML Syringe SC (10:00)
[2019-01-21] MEDS: Polyethylene Glycol 3350 17 GM PACKET PO (10:00)
[2019-01-21] MEDS: guaiFENesin 1,200 MG Tablet 1200 MG PO ×2 (10:00→21:33)
[2019-01-21] MEDS: hydroCHLOROthiazide 12.5mg 12.5 MG PO (10:00)
[2019-01-21] MEDS: levoFLOXacin IV 750 MG/150 ML BAG 100 MG IV (10:00)
[2019-01-21] MEDS: Lisinopril 20 MG Tablet PO (10:01)
[2019-01-21] MEDS: Pantoprazole Sodium 20 MG Tablet PO (10:04)
--- NOTE | 2019-01-21 16:04 | PN_ITS ---
Patient Problems: Active and Suspected Problems Acute respiratory failure with hypoxia (Acute) Subjective: Day #2 Levaquin Afebrile since admission Vital signs are stable 98% on a 3 L nasal cannula today. Has not required BiPAP today since awakening this morning. Sputum Gram stain showed 4+ white blood cells and the culture appears to be normal respiratory federica to date. Tells me that he is feeling better today. His appetite is improving and he is not getting short of breath with eating today. Sputum is still yellow-green but is getting furniture assembler and installer. It is not as thick with the addition of Mucinex. Objective: General: Alert, oriented ?3, cooperative, pleasant and appropriate, currently eating his lunch on a 3 L nasal cannula and appears to be in no respiratory distress. Neck: Supple, trachea midline, no enlarged cervical nodes, no enlarged supraclavicular nodes Lungs: diminished but, with better air exchange today, symmetric chest expansion, not tachypneic, no conversational dyspnea and no accessory muscle use. + diffuse exp wheezing. Heart: Regular rate and rhythm, normal S1, normal S2, no murmur, no gallop, no rub, distant heart sounds Abdomen: Soft, less distended today, bowel sounds present, umbilical hernia present, NT Extremities: No clubbing, no peripheral edema, no cyanosis, negative Homans, negative Monroe - Physical Exam Vital Signs Temp Pulse Resp BP Pulse Ox 97.0 F L 84 22 H 133/83 H 98 01/21/19 13:29 01/21/19 15:00 01/21/19 14:58 01/21/19 13:29 01/21/19 13:29 Oxygen Flow Rate (L/min) 3 Oxygen Delivery Method Nasal Cannula Weight: 198 lb 13.711 oz Body Mass Index (BMI) 31.1 Intake and Output for Last 24 Hours 01/19/19 01/20/19 01/21/19 23:59 23:59 23:59 Intake Total 1353 / 1353 3436 / 3436 1790 / 1790 Output Total 375 / 375 1974 / 1974 401 / 401 Balance 978 / 978 1461 / 1461 1389 / 1389 Microbiology Past 72 Hours 01/20/19 10:50 Gram Stain - Final Sputum, Expectorated/Coughed Respiratory Culture - Preliminary Appears to be normal respiratory federica. Further studies to follow. Medical Necessity - Tobacco Use Smoking Status: Former smoker Tobacco Use: Cigarettes Assessment/Plan All Active Problems Acute respiratory failure with hypoxia (Acute) Impressions 1. Acute hypoxic respiratory failure requiring BiPAP 2. Suspected bibasilar pneumonia, right greater than left 3. Acute exacerbation of COPD 4. Obesity 5. Tobacco dependence-quit 1 week prior to admission continue current tx ambulatory pulse ox prior to DC. Code Visit Inpatient E&M: 11163 Subs Hosp L2
[2019-01-22] VITALS (22 sets, daily range): BP systolic 128–141; BP diastolic 82–88; PULSE 70–94; RESP 12–22; TEMP 36.4–36.7; O2SAT 91–98
[2019-01-22] MEDS: Ipratropium/Albuterol Sulfate 3 ML AMPUL.NEB INHALATION ×5 (07:13→23:31)
[2019-01-22] MEDS: 0.9% Normal Saline 1,000 ML 75 ML IV (08:00)
[2019-01-22] MEDS: Aspirin 81 MG TAB.CHEW PO (08:01)
[2019-01-22] MEDS: Enoxaparin 40 MG/0.4 ML Syringe SC (09:28)
[2019-01-22] MEDS: hydroCHLOROthiazide 12.5mg 12.5 MG PO (09:28)
[2019-01-22] MEDS: Polyethylene Glycol 3350 17 GM PACKET PO (09:28)
[2019-01-22] MEDS: levoFLOXacin IV 750 MG/150 ML BAG 100 MG IV (09:28)
[2019-01-22] MEDS: Fluticasone 0.05% 1 SPRAY NASAL.SRY NASAL (09:28)
[2019-01-22] MEDS: Lisinopril 20 MG Tablet PO (09:29)
[2019-01-22] MEDS: guaiFENesin 1,200 MG Tablet 1200 MG PO ×2 (09:29→21:39)
[2019-01-22] MEDS: Pantoprazole Sodium 20 MG Tablet PO (09:31)
--- NOTE | 2019-01-22 16:05 | PCM.PROGNOTE ---
Patient Problems: Active and Suspected Problems Acute respiratory failure with hypoxia (Acute) Subjective: Day #3 Davonteaquin Patient is afebrile and the vital signs are stable. He was sitting up in the chair eating his lunch when I entered the room and he is off O2. Pulse ox at rest on room air is 92% and pulse ox with ambulation is 91%. He is not tachypneic. He states his shortness of breath is much improved today. He denies painful swallowing, sores in his mouth, dysuria, diarrhea. Telemetry shows normal sinus rhythm with one brief run of SVT today. No significant ventricular ectopy. Sputum culture is positive for Haemophilus influenza and mixed federica Objective: General: Alert, oriented ?3, cooperative, pleasant and appropriate Neck: Supple, trachea midline, Lungs: diminished but, with better air exchange today, symmetric chest expansion, not tachypneic, no conversational dyspnea and no accessory muscle use. CTA today Heart: Regular rate and rhythm, normal S1, normal S2, no murmur, no gallop, no rub, distant heart sounds Abdomen: Soft, less distended today, bowel sounds present, umbilical hernia present, NT Extremities: No clubbing, no peripheral edema, no cyanosis - Physical Exam Vital Signs Temp Pulse Resp BP Pulse Ox 97.6 F L 94 20 H 135/84 H 92 01/22/19 11:18 01/22/19 15:00 01/22/19 13:38 01/22/19 11:18 01/22/19 13:51 Oxygen Flow Rate (L/min) 1 Oxygen Delivery Method Room Air Weight: 198 lb 13.711 oz Body Mass Index (BMI) 31.1 Intake and Output for Last 24 Hours 01/20/19 01/21/19 01/22/19 23:59 23:59 23:59 Intake Total 3436 / 3436 3355 / 3355 1671 / 1671 Output Total 1974 401 / 401 Balance 1461 / 1461 2954 / 2954 1671 / 1671 Microbiology Past 72 Hours 01/20/19 10:50 Gram Stain - Final Sputum, Expectorated/Coughed Respiratory Culture - Final Haemophilus influenzae Mixed Federica Medical Necessity - Tobacco Use Smoking Status: Former smoker Tobacco Use: Cigarettes Assessment/Plan All Active Problems Acute respiratory failure with hypoxia (Acute) Impressions 1. Acute hypoxic respiratory failure requiring BiPAP 2. Haemophilus influenza pneumonia 3. Acute exacerbation of suspected COPD 4. Obesity 5. Tobacco dependence-quit 1 week prior to admission 6. Sleep disordered breathing Discontinue Solu-Medrol Transition to p.o. prednisone 40 mg daily to start today Ambulatory pulse ox in the a.m. on room air Probable discharge tomorrow Patient is agreeable to following up in the pulmonary clinic to have PFTs and possibly a sleep study ordered. He does tell me that he has been sleeping better and feels better since he has been wearing BiPAP at night in the hospital. Code Visit Inpatient E&M: 94683 Subs Hosp L2
[2019-01-22] MEDS: predniSONE 20 MG Tablet 40 MG PO (17:11)
[2019-01-23] VITALS (14 sets, daily range): BP systolic 149–160; BP diastolic 85–100; PULSE 68–87; RESP 12–19; TEMP 36.6–37.1; O2SAT 90–97
--- NOTE | 2019-01-23 03:40 | NURSING ---
This RN taking over patient care at this time.
[2019-01-23] MEDS: levoFLOXacin 750 MG Tablet PO (05:52)
--- NOTE | 2019-01-23 05:55 | RAD_ITS ---
STUDY: X-RAY CHEST REASON FOR EXAM: Male, 63 years old. History of pneumonia. TECHNIQUE: PA and lateral views of the chest. COMPARISON: Comparison is made with prior study dated January 19, 2019. FINDINGS: EKG electrodes are seen. Hyperinflation. Stable mild increased linear markings at the lung bases suggestive of scarring. No focal infiltrate is seen. There is blunting of the costophrenic angles posteriorly. Normal size heart. Normal mediastinum and toño. Normal visualized pulmonary arteries. There is atherosclerotic tortuosity of the aortic arch and descending thoracic aorta. There are diffuse degenerative changes of the visualized thoracic spine. Normal visualized ribs, clavicles, and shoulders. There is no demonstrated abnormality of the visualized soft tissue structures of the upper abdomen. RAD/Chest PA and Lateral IMPRESSION: Hyperinflation. Stable mild increased linear markings at the lung bases suggestive of scarring. Electronically Signed: Jimi Pierre, at 8:27 EDT , Service support ,
[2019-01-23] MEDS: Ipratropium/Albuterol Sulfate 3 ML AMPUL.NEB INHALATION ×3 (07:15→14:45)
[2019-01-23] MEDS: predniSONE 20 MG Tablet 40 MG PO (08:54)
[2019-01-23] MEDS: Aspirin 81 MG TAB.CHEW PO (08:54)
[2019-01-23] MEDS: guaiFENesin 1,200 MG Tablet 1200 MG PO (08:55)
[2019-01-23] MEDS: Pantoprazole Sodium 20 MG Tablet PO (09:05)
[2019-01-23] MEDS: Fluticasone 0.05% 1 SPRAY NASAL.SRY NASAL (09:06)
[2019-01-23] MEDS: Lisinopril 20 MG Tablet PO (09:06)
[2019-01-23] MEDS: hydroCHLOROthiazide 12.5mg 12.5 MG PO (09:07)
[2019-01-23] MEDS: Enoxaparin 40 MG/0.4 ML Syringe SC (09:07)
--- NOTE | 2019-01-23 15:02 | CASEMGMT ---
Pt does not qualify for home oxygen at this time. Weston OSUNA CM
--- NOTE | 2019-01-23 15:11 | CASEMGMT ---
WALTER utilized [facility] prescription assistance program for patient. Completed form and sent to [facility] pharmacy. SW notified patient and family. SW also gave patient information on [employer] and [email or web address]. Selena AMATO
--- NOTE | 2019-01-23 15:22 | DCINST_ITS ---
- Discharge Diagnoses Current Active Problems: Current Active and Chronic Problems Acute respiratory failure with hypoxia (Acute) Acute exacerbation of chronic obstructive pulmonary disease (COPD) (Chronic) You will use the following diet at home:: Other - Resume previous diet Your food should be the consistency of: Regular Your liquids should be the consistency of: Regular/Thin Discharge Activity: - - Avoid exposure to any strong smells such as bleach, cleaning products, strong colognes or perfumes, paint fumes and smoke of any kind. Avoid sudden exposure to cold air because this can cause bronchospasm. You may want to cover your mouth when you go outside in the winter. Avoid exposure to anyone who is sick with a cough or sore throat. Return to work on:: 01/27/19 Call your doctor if you observe: Fever of 101 or Higher, Shortness of breath, Dizziness, Fainting spells, Chest pain, - - Call your PCP if severe diarrhea ( > 5 stools a day), painful sores in the mouth, painful swallowing, rash or itching. Taking a probiotic such as Lactobacillus or Kefir can help with loose stools while taking antibiotics. Additional Instructions: 1. You had a respiratory infection caused by a bacteria called Haemophilus influenza. You received 4 days of antibiotic in the hospital and her being discharged with 2 additional days and then you will be done. 2. I am also discharging you on a tapering dose of prednisone for the next 10 days. Take the prednisone with food. 3. I have given you a prescription for a nicotine patch should you experience cravings for nicotine once you are feeling better and out of the hospital. 4. Follow-up with your primary care doctor in 7 to 10 days for a recheck. You could also follow-up with your pulmonary doctor. Allergies/Adverse Reactions: Allergies No Known Allergies Allergy (Verified 01/19/19 09:09) Medications to take at Discharge Albuterol Aerosols [Ventolin Aerosols] 2.5 mg INHALATION Q6H PRN PRN 11/02/18 Cholecalciferol (VIT D3) [Vitamin D3] 1,000 unit PO BID 11/02/18 Fluticasone 0.05% [Flonase Nasal [place]] 1 spray NASAL DAILY 11/02/18 Lisinopril/Hydrochlorothiazide [Lisinopril-Hctz 20-12.5 mg Tab] 1 each PO DAILY 11/02/18 Loratadine [Claritin] 10 mg PO DAILY 11/02/18 Omeprazole [Prilosec] 20 mg PO DAILY 11/02/18 Aspirin [Aspirin, Baby] 81 mg PO DAILY@0800 01/19/19 Budesonide Aerosol [Pulmicort Respules] 0.5 mg INHALATION DAILY 01/19/19 Guaifenesin [Mucinex] 1,200 mg PO BID #14 tablet 01/23/19 Prednisone 10 mg PO UD #30 tab 01/23/19 levoFLOXacin tablet [Levaquin tablet] 750 mg PO DAILY@0600 #2 tablet 01/23/19 The following prescriptions were given: levoFLOXacin tablet [Levaquin tablet] 750 mg PO DAILY@0600 #2 tablet Prednisone 10 mg PO UD #30 tab Guaifenesin [Mucinex] 1,200 mg PO BID #14 tablet Primary Care Physician: Yaquelin Brown [Primary Care Provider] - Please follow up with your Primary Care Physician in: 7-10 days Test Results: Test results from this visit will be discussed in further detail at your follow- up appointment, if applicable. Proposed Discharge Date: 01/23/19
--- NOTE | 2019-01-23 15:27 | PCM.DC.SUM ---
Discharge Date and Diagnosis Date of Admission: 01/19/19 Date of Discharge: 01/23/19 - Primary Discharge Diagnosis Active and Suspected Problems Acute respiratory failure with hypoxia (Acute) CAP due to Haemophilus influenza Acute exacerbation of COPD - Secondary Discharge Diagnosis Chronic Problems Tobacco user (Chronic) Hypertension (Chronic) COLD (chronic obstructive lung disease) (Chronic) Obesity Hospital Course and Treatment Imaging Results: Clinical Impression(s) from Imaging Studies Chest X-Ray 01/19/19 09:26 IMPRESSION: Findings suspicious for underlying emphysematous change chronic lung disease, there is a suggestion of a newly visualized nodule in the right lower lobe versus summation of shadows that measures 7.7 mm. Consider follow-up noncontrast CT chest for further evaluation of this and the lung parenchyma. There is no visualized new focal consolidation. Electronically Signed: Lian Torres MD at 9:53 EDT Tel , Service support , Chest X-Ray 01/23/19 05:55 IMPRESSION: Hyperinflation. Stable mild increased linear markings at the lung bases suggestive of scarring. Electronically Signed: Jimi Pierre, at 8:27 EDT , Service support , Microbiology 01/20/19 10:50 Sputum, Expectorated/Coughed Gram Stain - Final 01/20/19 10:50 Sputum, Expectorated/Coughed Respiratory Culture - Final Haemophilus influenzae Mixed Fatou none Operations: None Procedures: None Summary of Care Provided: Mr. Kurtz is a 63-year-old male who presented to the emergency department at [facility] on 01/19/2019 complaining of increased work of breathing associated with sweating that began the preceding night. Past medical history is significant for COPD, tobacco abuse, hypertension and obesity. Pulse ox on room air in the emergency department was 84%. He was afebrile with a pulse rate of 111 and a blood pressure of 156/106. The respiratory rate was 39. He was placed on BiPAP in the emergency department. Chest x-ray showed possible 8 mm nodular lesion in the right lower lobe versus summation of shadows per radiologist. White blood cell count was 13.5 and hemoglobin and platelets were within normal limits. An ABG done on a 3 L nasal cannula showed a pH of 7.36 with PCO2 of 40.7 and a PO2 of 93. BMP was unremarkable. LFTs were within normal limits and the troponin was less than 0.015. He was admitted to a monitored bed on PCU with a diagnosis of acute hypoxic respiratory failure requiring BiPAP rescue secondary to acute exacerbation of COPD. Solu-Medrol 40 mg IV every 8 hours was initiated and he was placed on DuoNeb aerosols every 4 hours and as needed albuterol. Sputum was particularly purulent in appearance and he was started on Levaquin 01/20/19. Sputum culture was positive for Haemophilus influenza. Smoking cessation counselling was done in the hospital. He gradually improved and was transitioned to oral Prednisone on 01/22/2019. Following morning and ambulatory pulse ox was obtained and he was 95% on room air at rest and 90% with ambulation on room air. He was discharged home with a prescription for Levaquin to finish 5 days of therapy. He was placed on a tapering dose of prednisone and will follow up with the [facility] as previously scheduled. General: Alert, oriented ?3, cooperative, pleasant and appropriate Neck: Supple, trachea midline, Lungs: diminished but, with better air exchange today, symmetric chest expansion, not tachypneic, no conversational dyspnea and no accessory muscle use. CTA today Heart: Regular rate and rhythm, normal S1, normal S2, no murmur, no gallop, no rub, distant heart sounds Abdomen: Soft, less distended today, bowel sounds present, umbilical hernia present, NT Extremities: No clubbing, no peripheral edema, no cyanosis This note was generated with [employer] dictation software. It may contain incorrect words, spelling, and punctuation that were not noted in checking the note before signing. - Physical Exam Vital Signs Temp Pulse Resp BP Pulse Ox 98.4 F 87 16 151/91 H 95 01/23/19 13:04 01/23/19 14:45 01/23/19 14:45 01/23/19 13:04 01/23/19 14:36 Oxygen Flow Rate (L/min) [ 0 AMBULATING on Room Air] Oxygen Flow Rate (L/min) [At 0 REST on Room Air] Oxygen Flow Rate (L/min) 1 Oxygen Delivery Method Room Air Weight: 198 lb 13.711 oz Body Mass Index (BMI) 31.1 Intake and Output for Last 24 Hours 01/21/19 01/22/19 01/23/19 23:59 23:59 23:59 Intake Total 3355 / 3355 2571 / 2571 1060 / 1060 Output Total 401 / 401 3 / 3 Balance 2954 / 2954 2568 / 2568 1060 / 1060 Microbiology Past 72 Hours 01/20/19 10:50 Gram Stain - Final Sputum, Expectorated/Coughed Respiratory Culture - Final Haemophilus influenzae Mixed Fatou Discharge Activity: - - Avoid exposure to any strong smells such as bleach, cleaning products, strong colognes or perfumes, paint fumes and smoke of any kind. Avoid sudden exposure to cold air because this can cause bronchospasm. You may want to cover your mouth when you go outside in the winter. Avoid exposure to anyone who is sick with a cough or sore throat. Return to work on:: 01/27/19 Call your doctor if you observe: Fever of 101 or Higher, Shortness of breath, Dizziness, Fainting spells, Chest pain, - - Call your PCP if severe diarrhea ( > 5 stools a day), painful sores in the mouth, painful swallowing, rash or itching. Taking a probiotic such as Lactobacillus or Kefir can help with loose stools while taking antibiotics. Home Medications: Medications to take at Discharge Albuterol Aerosols [Ventolin Aerosols] 2.5 mg INHALATION Q6H PRN PRN 11/02/18 Cholecalciferol (VIT D3) [Vitamin D3] 1,000 unit PO BID 11/02/18 Fluticasone 0.05% [Flonase Nasal [place]] 1 spray NASAL DAILY 11/02/18 Lisinopril/Hydrochlorothiazide [Lisinopril-Hctz 20-12.5 mg Tab] 1 each PO DAILY 11/02/18 Loratadine [Claritin] 10 mg PO DAILY 11/02/18 Omeprazole [Prilosec] 20 mg PO DAILY 11/02/18 Aspirin [Aspirin, Baby] 81 mg PO DAILY@0800 01/19/19 Budesonide Aerosol [Pulmicort Respules] 0.5 mg INHALATION DAILY 01/19/19 Guaifenesin [Mucinex] 1,200 mg PO BID #14 tablet 01/23/19 Nicotine [Nicoderm Cq ([facility]KC)] 21 mg TRANSDERM. DAILY #28 patch 01/23/19 Prednisone 10 mg PO UD #30 tab 01/23/19 levoFLOXacin tablet [Levaquin tablet] 750 mg PO DAILY@0600 #2 tablet 01/23/19 Following Prescrptions Were Given to Patient: levoFLOXacin tablet [Levaquin tablet] 750 mg PO DAILY@0600 #2 tablet Nicotine [Nicoderm Cq ([facility])] 21 mg TRANSDERM. DAILY #28 patch Prednisone 10 mg PO UD #30 tab Guaifenesin [Mucinex] 1,200 mg PO BID #14 tablet Primary Care Physician: Yaquelin Brown [Primary Care Provider] - Please follow up with your Primary Care Physician in: 7-10 days Disposition: Home Minutes spent on discharge:: 30 Medical Necessity - Tobacco Use Smoking Status: Current every day smoker - quit for 2 days prior to admission because of severe SOB Tobacco Use: Cigarettes Meaningful Use Info Meaningful Use Diagnoses (Choose all that apply): None applicable Code Visit Inpatient E&M: 92590 Disch Hosp
--- NOTE | 2019-01-23 15:33 | DS.PCM_ITS ---
Discharge Date and Diagnosis Date of Admission: 01/19/19 Date of Discharge: 01/23/19 - Primary Discharge Diagnosis Active and Suspected Problems Acute respiratory failure with hypoxia (Acute) CAP due to Haemophilus influenza Acute exacerbation of COPD - Secondary Discharge Diagnosis Chronic Problems Tobacco user (Chronic) Hypertension (Chronic) COLD (chronic obstructive lung disease) (Chronic) Obesity Hospital Course and Treatment Imaging Results: Clinical Impression(s) from Imaging Studies Chest X-Ray 01/19/19 09:26 IMPRESSION: Findings suspicious for underlying emphysematous change chronic lung disease, there is a suggestion of a newly visualized nodule in the right lower lobe versus summation of shadows that measures 7.7 mm. Consider follow-up noncontrast CT chest for further evaluation of this and the lung parenchyma. There is no visualized new focal consolidation. Electronically Signed: Lian Torres MD at 9:53 EDT Tel , Service support , Chest X-Ray 01/23/19 05:55 IMPRESSION: Hyperinflation. Stable mild increased linear markings at the lung bases suggestive of scarring. Electronically Signed: Jimi Pierre, at 8:27 EDT , Service support , Microbiology 01/20/19 10:50 Sputum, Expectorated/Coughed Gram Stain - Final 01/20/19 10:50 Sputum, Expectorated/Coughed Respiratory Culture - Final Haemophilus influenzae Mixed Fatou none Operations: None Procedures: None Summary of Care Provided: Mr. Kurtz is a 63-year-old male who presented to the emergency department at [facility] on 01/19/2019 complaining of increased work of breathing associated with sweating that began the preceding night. Past medical history is significant for COPD, tobacco abuse, hypertension and obesity. Pulse ox on room air in the emergency department was 84%. He was afebrile with a pulse rate of 111 and a blood pressure of 156/106. The respiratory rate was 39. He was placed on BiPAP in the emergency department. Chest x-ray showed possible 8 mm nodular lesion in the right lower lobe versus summation of shadows per radiologist. White blood cell count was 13.5 and hemoglobin and platelets were within normal limits. An ABG done on a 3 L nasal cannula showed a pH of 7.36 with PCO2 of 40.7 and a PO2 of 93. BMP was unremarkable. LFTs were within normal limits and the troponin was less than 0.015. He was admitted to a monitored bed on PCU with a diagnosis of acute hypoxic respiratory failure requiring BiPAP rescue secondary to acute exacerbation of COPD. Solu-Medrol 40 mg IV every 8 hours was initiated and he was placed on DuoNeb aerosols every 4 hours and as needed albuterol. Sputum was particularly purulent in appearance and he was started on Levaquin 01/20/19. Sputum culture was positive for Haemophilus influenza. Smoking cessation counselling was done in the hospital. He gradually improved and was transitioned to oral Prednisone on 01/22/2019. Following morning and ambulatory pulse ox was obtained and he was 95% on room air at rest and 90% with ambulation on room air. He was discharged home with a prescription for Levaquin to finish 5 days of therapy. He was placed on a tapering dose of prednisone and will follow up with the [facility] as previously scheduled. General: Alert, oriented ?3, cooperative, pleasant and appropriate Neck: Supple, trachea midline, Lungs: diminished but, with better air exchange today, symmetric chest expansion, not tachypneic, no conversational dyspnea and no accessory muscle use. CTA today Heart: Regular rate and rhythm, normal S1, normal S2, no murmur, no gallop, no rub, distant heart sounds Abdomen: Soft, less distended today, bowel sounds present, umbilical hernia present, NT Extremities: No clubbing, no peripheral edema, no cyanosis This note was generated with [employer] dictation software. It may contain incorrect words, spelling, and punctuation that were not noted in checking the note before signing. - Physical Exam Vital Signs Temp Pulse Resp BP Pulse Ox 98.4 F 87 16 151/91 H 95 01/23/19 13:04 01/23/19 14:45 01/23/19 14:45 01/23/19 13:04 01/23/19 14:36 Oxygen Flow Rate (L/min) [ 0 AMBULATING on Room Air] Oxygen Flow Rate (L/min) [At 0 REST on Room Air] Oxygen Flow Rate (L/min) 1 Oxygen Delivery Method Room Air Weight: 198 lb 13.711 oz Body Mass Index (BMI) 31.1 Intake and Output for Last 24 Hours 01/21/19 01/22/19 01/23/19 23:59 23:59 23:59 Intake Total 3355 / 3355 2571 / 2571 1060 / 1060 Output Total 401 / 401 3 / 3 Balance 2954 / 2954 2568 / 2568 1060 / 1060 Microbiology Past 72 Hours 01/20/19 10:50 Gram Stain - Final Sputum, Expectorated/Coughed Respiratory Culture - Final Haemophilus influenzae Mixed Fatou Discharge Activity: - - Avoid exposure to any strong smells such as bleach, cleaning products, strong colognes or perfumes, paint fumes and smoke of any kind. Avoid sudden exposure to cold air because this can cause bronchospasm. You may want to cover your mouth when you go outside in the winter. Avoid exposure to anyone who is sick with a cough or sore throat. Return to work on:: 01/27/19 Call your doctor if you observe: Fever of 101 or Higher, Shortness of breath, Dizziness, Fainting spells, Chest pain, - - Call your PCP if severe diarrhea ( > 5 stools a day), painful sores in the mouth, painful swallowing, rash or itching. Taking a probiotic such as Lactobacillus or Kefir can help with loose stools while taking antibiotics. Home Medications: Medications to take at Discharge Albuterol Aerosols [Ventolin Aerosols] 2.5 mg INHALATION Q6H PRN PRN 11/02/18 Cholecalciferol (VIT D3) [Vitamin D3] 1,000 unit PO BID 11/02/18 Fluticasone 0.05% [Flonase Nasal [place] [facility]] 1 spray NASAL DAILY 11/02/18 Lisinopril/Hydrochlorothiazide [Lisinopril-Hctz 20-12.5 mg Tab] 1 each PO DAILY 11/02/18 Loratadine [Claritin] 10 mg PO DAILY 11/02/18 Omeprazole [Prilosec] 20 mg PO DAILY 11/02/18 Aspirin [Aspirin, Baby] 81 mg PO DAILY@0800 01/19/19 Budesonide Aerosol [Pulmicort Respules] 0.5 mg INHALATION DAILY 01/19/19 Guaifenesin [Mucinex] 1,200 mg PO BID #14 tablet 01/23/19 Nicotine [Nicoderm Cq (PBKC)] 21 mg TRANSDERM. DAILY #28 patch 01/23/19 Prednisone 10 mg PO UD #30 tab 01/23/19 levoFLOXacin tablet [Levaquin tablet] 750 mg PO DAILY@0600 #2 tablet 01/23/19 Following Prescrptions Were Given to Patient: levoFLOXacin tablet [Levaquin tablet] 750 mg PO DAILY@0600 #2 tablet Nicotine [Nicoderm Cq ([facility])] 21 mg TRANSDERM. DAILY #28 patch Prednisone 10 mg PO UD #30 tab Guaifenesin [Mucinex] 1,200 mg PO BID #14 tablet Primary Care Physician: Yaquelin Brown [Primary Care Provider] - Please follow up with your Primary Care Physician in: 7-10 days Disposition: Home Minutes spent on discharge:: 30 Medical Necessity - Tobacco Use Smoking Status: Current every day smoker - quit for 2 days prior to admission because of severe SOB Tobacco Use: Cigarettes Meaningful Use Info Meaningful Use Diagnoses (Choose all that apply): None applicable Code Visit Inpatient E&M: 45350 Disch Hosp
--- NOTE | 2019-01-24 13:50 | CASEMGMT ---
ENRRIQUE IMRZA Discharge Follow-Up Phone Call. Lacemely: 13 Strata: 4 Discharge Date: 01/23/19 Adm Dx: Hypoxic Resp failure from COPD Call to pt to inquire about how he has been doing since being discharged from the hospital. He states, so far pretty good. Pt states he does not have any questions about the discharge instructions or medications. ENRRIQUE MIRZA inquired if he was able to get an appt @ the [facility]. He states he has not made an appt yet but that he will do so when he gets off of the phone. Pt denies having any questions/concerns. ENRRIQUE MIRZA thanked pt for choosing [facility]. Karol COX RN, CM
== END 2019-01-23 17:05 | disposition home or self-care (01) | DRG 189 ==
LOC: ED 10:14 → PCU 10:43
PROVIDERS: Admitting Provider Family Medicine; Emergency Provider Emergency Medicine; Visit Provider Internal Medicine
DX: J96.01 Acute respiratory failure with hypoxia (principal); J14 Pneumonia due to Hemophilus influenzae; J44.0 Chronic obstructive pulmonary disease with (acute) lower respiratory infection; J44.1 Chronic obstructive pulmonary disease with (acute) exacerbation; I10 Essential (primary) hypertension; K21.9 Gastro-esophageal reflux disease without esophagitis; B35.9 Dermatophytosis, unspecified; E66.9 Obesity, unspecified; Z68.31 Body mass index [BMI] 31.0-31.9, adult; Z71.3 Dietary counseling and surveillance; F17.210 Nicotine dependence, cigarettes, uncomplicated
CPT/HCPCS: 36415; 36600; 71045; 71046; 80048; 80053; 82803; 83605; 84484; 85025; 85027; 87070; 87077; 87205; 93005; 94002; 94003; 94640; 99251; 99285; J7030; A4216; G0463

== ENCOUNTER 2019-02-01 10:41 | Emergency (ER) | payer MEDICAID, SELFPAY ==
[2019-01-19 11:21] VITALS: BMI 31.1
[2019-02-01 10:42] VITALS: BP 151/87; PULSE 96; RESP 17; TEMP 36.6; O2SAT 94; BMI 31.7
--- NOTE | 2019-02-01 11:12 | ED.DEP ---
ED Disposition - Plan for ED Patient: Instructions: ED Eye Injury Corneal Abrasion Referrals: Vickie Maya,Yaquelin Chery [Primary Care Provider] - Hira Collado MD [STAFF PHYSICIAN] - As soon as possible
[2019-02-01] MEDS: Tetracaine 0.5% Ophthalmic Bottle 1 DRP EACH EYE (11:13)
--- NOTE | 2019-02-01 11:15 | ED.VISSUMM ---
- ER Visit Summary Date of Service: 02/01/19 Chief Complaint: [Right eye pain] History of Present Illness: The patient is a 63 M [Zentz to the emergency department with right eye pain that started around 4 AM. Patient states that he got up to use the restroom and noticed that he had some mild discomfort and irritation to the right eye. He was at [facility] having a sleep study at the time. Patient states the pain progressively worsened and now is having tearing and photophobia. He denies any injury. He denies any visual changes.] Physical Examination: [HEENT-PERRLA, EOMI. Cranial nerves II through XII grossly intact. TMs clear. Mucous membranes moist. No adenopathy. Patient has conjunctival erythema to the right eye. Eyelids were everted no foreign bodies noted. Cardiovascular-regular rate and rhythm without murmur or ectopy Lungs-clear to auscultation, chest wall stable without crepitus or subcu emphysema Abdomen-normoactive bowel sounds, soft, nontender, no rebound or rigidity, no peritoneal signs. Extremities-intact ?4, normal range of motion, normal pulses, atraumatic] Test Results: [] Emergency Department Course and Treatment: [Patient had tetracaine instilled in the right eye and then floor seen however I do not have a blue penlight to evaluate for abrasions although I suspect he may have a superficial abrasion over the cornea. Eye pressures were checked with Bartolo-Pen and were 33 in the right eye. Case was discussed with ophthalmology who will see patient once discharged from the emergency department for more complete evaluation.] Treatment Plan: [Follow-up immediately with ophthalmology.] Disposition: [Transfer to ophthalmology office for further evaluation] Impression: [Right eye pain-suspect corneal abrasion] This note was generated with [employer] dictation software. It may contain incorrect words, spelling, and punctuation that were not noted in review of the chart prior to signing ED Disposition - Plan for ED Patient: Instructions: ED Eye Injury Corneal Abrasion Referrals: Hira Collado MD [STAFF PHYSICIAN] - As soon as possible [facility] Yaquelin Maya [Primary Care Provider] -
== END 2019-02-01 11:16 | disposition home or self-care (01) ==
LOC: ED 11:14
PROVIDERS: Emergency Provider Emergency Medicine
DX: H57.11 Ocular pain, right eye (principal); H53.141 Visual discomfort, right eye; J44.9 Chronic obstructive pulmonary disease, unspecified; I10 Essential (primary) hypertension; Z79.82 Long term (current) use of aspirin; Z79.899 Other long term (current) drug therapy; Z87.891 Personal history of nicotine dependence
CPT/HCPCS: 99281

== ENCOUNTER → 2020-04-30 08:18 | Outpatient (CLI) | payer MEDICAID, SELFPAY ==
[2020-04-30 08:51] LABS: Absolute Lymphocyte Count 3.27 X10^3/uL (0.83-4.51); Absolute Neutrophil Count 6.1 X10^3/uL (2.0-7.7); Basophil# 0.07 X10^3/uL; Basophil% 0.7 % (0-1); Eosinophil# 0.33 X10^3/uL; Eosinophils% 3.1 % (0-5); Hematocrit 48.1 % (40-54); Hemoglobin 15.2 g/dL (13.0-16.5); Lymphocyte # 3.27 X10^3/ul (4.0); Lymphocyte % 31.2 % (19-41); Mean Corp Hgb Conc 31.6 g/dL (32-36); Mean Corpuscular Hgb 29.3 pg (27.0-32.0); Mean Corpuscular Volume 92.9 fL (80-94); Mean Platelet Vol. 9.7 fl (6.2-12.0); Monocyte# 0.69 X10^3/uL; Monocyte% 6.6 % (0-10); NRBC Flagged by Analyzer 0 % (0-5); Neutrophil # 6.07 X10^3/uL (2.7-7.7); Neutrophil % 57.9 % (47-70); Platelet Count 286 K/mm3 (150-450); RBC Distribution Width CV 13.8 % (11.6-14.6); Red Blood Count 5.18 M/mm3 (4.6-6.2); White Blood Count 10.5 K/mm3 (4.4-11.0)
[2020-04-30 09:10] LABS: Vitamin D,25 Hydroxy 71.9 ng/mL
[2020-04-30 09:14] LABS: Hemoglobin A1c 5.5 % (3.8-5.6)
[2020-04-30 09:16] LABS: ALB/GLOB Ratio 0.9 RATIO (0.9-2.4); AST(SGOT) 18 U/L (15-37); Alanine Aminotransfer ALT/SGPT 24 U/L (16-61); Albumin, Serum 3.6 g/dL (3.2-5.0); Alkaline Phosphatase 76 U/L (45-117); Anion Gap 6 (5-15); BUN 17 mg/dL (7-18); Calcium,Total 9.1 mg/dL (8.5-10.1); Chloride 101 mmol/L (98-107); Cholesterol 159 mg/dL (200); Creatinine, Serum 1.13 mg/dL (0.70-1.30); EST Glomerular Filtration Rate 70 mL/min (>60); Est Glom Filt Rate - Afr Amer 84 mL/min (>60); Globulin 3.9 g/dL (2.2-4.2); Glucose 98 mg/dL (74-106); High Density Lipoprotein 38 mg/dL; Potassium 3.8 mmol/L (3.5-5.1); Protein, Total 7.5 g/dL (6.4-8.2); Sodium Level 137 mmol/L (136-145); Triglycerides 138 mg/dL; Very Low Density Lipoprotein 28 mg/dL (5-40)
== END ==
PROVIDERS: Nurse Practitioner Family
DX: I10 Essential (primary) hypertension (principal); E78.5 Hyperlipidemia, unspecified; D75.1 Secondary polycythemia; K21.9 Gastro-esophageal reflux disease without esophagitis
CPT/HCPCS: 36415; 80053; 80061; 82306; 83036; 85025

== ENCOUNTER → 2020-11-04 09:20 | Outpatient (CLI) | payer MEDICAID, SELFPAY ==
[2020-11-04 09:45] LABS: Absolute Lymphocyte Count 3.61 X10^3/uL (0.83-4.51); Absolute Neutrophil Count 6.1 X10^3/uL (2.0-7.7); Basophil% 0.9 % (0-1); Eosinophil# 0.37 X10^3/uL; Eosinophils% 3.4 % (0-5); Hematocrit 48.7 % (40-54); Hemoglobin 15.2 g/dL (13.0-16.5); Lymphocyte # 3.61 X10^3/ul (4.0); Lymphocyte % 32.7 % (19-41); Mean Corp Hgb Conc 31.2 g/dL (32-36); Mean Corpuscular Hgb 29.3 pg (27.0-32.0); Mean Platelet Vol. 9.6 fl (6.2-12.0); Monocyte# 0.82 X10^3/uL; Monocyte% 7.4 % (0-10); NRBC Flagged by Analyzer 0 % (0-5); Neutrophil # 6.08 X10^3/uL (2.7-7.7); Neutrophil % 55.1 % (47-70); Platelet Count 272 K/mm3 (150-450); RBC Distribution Width CV 13.5 % (11.6-14.6); RBC Distribution Width SD 47.2 fl (35.1-43.9); Red Blood Count 5.18 M/mm3 (4.6-6.2)
[2020-11-04 10:09] LABS: AST(SGOT) 17 U/L (15-37); Alanine Aminotransfer ALT/SGPT 26 U/L (16-61); Albumin, Serum 3.6 g/dL (3.2-5.0); Alkaline Phosphatase 63 U/L (45-117); Anion Gap 5 (5-15); BUN 18 mg/dL (7-18); BUN/Creat Ratio 13.5 RATIO (10-20); Calcium,Total 8.8 mg/dL (8.5-10.1); Chloride 101 mmol/L (98-107); Creatinine, Serum 1.33 mg/dL (0.70-1.30); EST Glomerular Filtration Rate 58 mL/min (>60); Est Glom Filt Rate - Afr Amer 70 mL/min (>60); Globulin 3.7 g/dL (2.2-4.2); Glucose 81 mg/dL (74-106); Potassium 3.9 mmol/L (3.5-5.1); Protein, Total 7.3 g/dL (6.4-8.2); Sodium Level 138 mmol/L (136-145)
== END ==
PROVIDERS: Visit Provider Family Medicine
DX: I10 Essential (primary) hypertension (principal); Z12.5 Encounter for screening for malignant neoplasm of prostate
CPT/HCPCS: 36415; 80053; 84153; 85025; G0103

== ENCOUNTER → 2020-11-15 08:01 | Outpatient (CLI) | payer MEDICAID, SELFPAY ==
--- NOTE | 2020-11-15 08:03 | CT_ITS ---
STUDY: LOW DOSE CT LUNG CANCER SCREENING REASON FOR EXAM: Male, 65 years old. COPD. Patient has a history of smoking 1 pack per day for 50 years. RADIATION DOSAGE (If Supplied By Facility): CTDIvol = ( 4.02 ) mGy, DLP = ( 133.41 ) mGycm TECHNIQUE: No contrast was administered. Low dose technique was utilized (average mAS-38 and kVp 120). 1.25 mm axial source images with a slice interval of 1.25-mm were reconstructed in lung windows. 2.5 mm axial source images with a slice interval of 2.5-mm were reconstructed in lung windows. 5.0 mm axial source images with a slice interval of 5.0-mm were reconstructed in soft tissue windows. Nodule measured using lung windows on PACS and/or independent workstation with automated measurement of minimum and maximum diameter. Nodule measurement reported as average diameter rounded to the nearest whole number. Growth is defined as an increase ins size of greater than 1.5 mm. COMPARISON: None. NODULES: No suspicious nodules are seen. Emphysema: Hyperinflation. Minimal degree of linear scarring is seen in the lingular segment of the left upper lobe as well as in the medial aspect of the right middle lobe. Endobronchial lesion: None Aorta: Mild atherosclerotic calcific plaques at the level of the aortic arch. Coronary arteries: Coronary artery calcification. Heart: Unremarkable Mediastinal nodes: Small benign-appearing intestinal lymph nodes. Other chest and abdominal findings: CT/Low Dose CT Lung Screening IMPRESSION: Lung-RADS category 2 - Continue annual screening with LDCT in 12 months. IMPORTANT NOTES FOR USE: ACR Lung-RADS Version 1.0 Assessment Categories Release Date: December 15, 2013 Category: Coded 0-4 bases on nodule(s) with highest degree of suspicion. Negative screen is defined as categories 1 and 2; a positive screen is defined as categories 3 and 4. Category 3 and 4A nodules that are unchanged on interval CT should be coded as category 2, and individuals returned to screening in 12 months. Category 4X: Category 3 or 4 nodules with additional imaging findings that increase the suspicion of lung cancer, such as spiculation, GGN that doubles in size in 1 year, enlarged lymph notes, etc. Category Modifiers: S (significant finding unrelated to lung cancer) and C (prior history of treated lung cancer) may be added to the 0-4 Lung-RADS Electronically Signed: Jimi Pierre MD at 9:30 EDT , Service support ,
== END ==
DX: J44.9 Chronic obstructive pulmonary disease, unspecified (principal)
CPT/HCPCS: 71271

== ENCOUNTER → 2020-12-10 10:40 | Outpatient (CLI) | payer MEDICAID, SELFPAY ==
[2020-12-10 11:28] LABS: BUN 17 mg/dL (7-18); Creatinine, Serum 1.16 mg/dL (0.70-1.30); EST Glomerular Filtration Rate 68 mL/min (>60); Est Glom Filt Rate - Afr Amer 82 mL/min (>60)
[2020-12-11 12:35] LABS: PSA, Free 1.13 ng/mL; PSA, Free % 14.3 % (.); PSA, Total Ultrasensitive 7.9 ng/mL (0.0-4.0)
== END ==
DX: R35.1 Nocturia (principal)
CPT/HCPCS: 36415; 82565; 84153; 84154; 84520

== ENCOUNTER → 2021-04-04 13:58 | Outpatient (CLI) | payer MEDICAID, SELFPAY ==
--- NOTE | 2021-04-04 14:25 | RAD_ITS ---
STUDY: X-RAY CHEST REASON FOR EXAM: Male, 65 years old. History of pneumonia. COPD. TECHNIQUE: Frontal and lateral views of the chest. COMPARISON: 01/23/2019. FINDINGS: Hyperexpansion with mild diffuse interstitial pattern and scattered healed granulomatous calcifications, unchanged. There is no demonstrated pleural abnormality. Cardiomegaly unchanged. Normal mediastinum and toño. Normal visualized pulmonary arteries. Marked aortic tortuosity with calcification unchanged. Stable thoracic spondylosis. Normal visualized ribs, clavicles, and shoulders. There is no demonstrated abnormality of the visualized soft tissue structures of the upper abdomen. RAD/Chest PA and Lateral IMPRESSION: Stable cardiomegaly, hyperexpansion and mild diffuse interstitial pattern. No active or acute cardiopulmonary disease. Electronically Signed: Hira Watson MD at 12:13 EDT , Service support ,
[2021-04-04 15:03] LABS: Absolute Lymphocyte Count 1.38 X10^3/uL (0.83-4.51); Absolute Neutrophil Count 10.6 X10^3/uL (2.0-7.7); Basophil# 0.05 X10^3/uL; Basophil% 0.4 % (0-1); Eosinophil# 0.01 X10^3/uL; Eosinophils% 0.1 % (0-5); Hematocrit 43.9 % (40-54); Hemoglobin 14.1 g/dL (13.0-16.5); Lymphocyte # 1.38 X10^3/ul (0.83-4.51); Mean Corp Hgb Conc 32.1 g/dL (32-36); Mean Corpuscular Hgb 29.9 pg (27.0-32.0); Mean Corpuscular Volume 93.2 fL (80-94); Mean Platelet Vol. 10.3 fl (6.2-12.0); Monocyte# 0.34 X10^3/uL; Monocyte% 2.7 % (0-10); NRBC Flagged by Analyzer 0 % (0-5); Neutrophil # 10.64 X10^3/uL (2.7-7.7); Neutrophil % 85.2 % (47-70); Platelet Count 254 K/mm3 (150-450); RBC Distribution Width CV 13.5 % (11.6-14.6); RBC Distribution Width SD 46.5 fl (35.1-43.9); Red Blood Count 4.71 M/mm3 (4.6-6.2); White Blood Count 12.5 K/mm3 (4.4-11.0)
[2021-04-04 15:25] LABS: BNP,B-Type NATRIURETIC PEPTIDE 86.1 pg/mL (0-100)
[2021-04-04 15:26] LABS: ALB/GLOB Ratio 0.9 RATIO (0.9-2.4); AST(SGOT) 19 U/L (15-37); Alanine Aminotransfer ALT/SGPT 31 U/L (16-61); Albumin, Serum 3.1 g/dL (3.2-5.0); Alkaline Phosphatase 61 U/L (45-117); Anion Gap 2 (5-15); BUN 21 mg/dL (7-18); BUN/Creat Ratio 19.1 RATIO (10-20); Calcium,Total 8.8 mg/dL (8.5-10.1); Chloride 105 mmol/L (98-107); EST Glomerular Filtration Rate 72 mL/min (>60); Est Glom Filt Rate - Afr Amer 87 mL/min (>60); Globulin 3.3 g/dL (2.2-4.2); Glucose 121 mg/dL (74-106); Potassium 3.5 mmol/L (3.5-5.1); Protein, Total 6.4 g/dL (6.4-8.2); Sodium Level 139 mmol/L (136-145)
== END ==
PROVIDERS: Referring Provider Nurse Practitioner Adult Health; Visit Provider Nurse Practitioner Adult Health
DX: J44.1 Chronic obstructive pulmonary disease with (acute) exacerbation (principal)
CPT/HCPCS: 36415; 71046; 80053; 83880; 85025

== ENCOUNTER → 2021-04-28 12:55 | Outpatient (CLI) | payer MEDICAID, SELFPAY ==
--- NOTE | 2021-04-28 12:56 | ECHOCS_ITS ---
Reason For Study: SOB, HTN Procedure This was a 2D Doppler, Color Flow transthoracic echocardiogram. The study was technically difficult. Contrast injection was performed. Exam performed in department. Left Ventricle Normal LV size. Left ventricular systolic function is normal. The estimated ejection fraction is 70 %. Diastolic function is indeterminate. No regional wall motion abnormalities noted. Right Ventricle Normal RV size. Normal systolic function. Atria The left atrium is mildly enlarged. Normal right atrium. No doppler evidence for ASD. Mitral Valve There is no mitral annular calcification. Normal mitral valve. Trivial mitral valve insufficiency. Tricuspid Valve Normal tricuspid valve. Trivial tricuspid valve insufficiency. Unable to estimate RV systolic pressure/pulmonary artery pressure due to technically difficult study. Aortic Valve Trisinus/trileaflet aortic valve. Normal aortic valve. Pulmonic Valve Normal pulmonic valve. Trivial pulmonic valve insufficiency. Great Vessels Normal aortic root. Pericardium/Pleural No pericardial effusion. Epicardial fat. Medication 22 gauge I.V. with prn adaptor inserted into right arm. Diluted definity 3.0ml given slow IV push to enhance endocardial definition. MMode/2D Measurements & Calculations LVIDd: 3.9 cm IVSd: 1.2 cm Ao root diam: 3.8 cm LVIDs: 2.7 cm LVPWd: 0.94 cm RVDd: 3.5 cm FS: 31.0 % LAV(MOD-bp): 47.3 ml LVAd ap4: 33.5 cm2 LVAd ap2: 27.9 cm2 LAV(MOD-bp) Indexed: 23.2 ml/m2 LVLd ap4: 8.7 cm LVLd ap2: 8.2 cm LAV(MOD-sp2): 47.5 ml EDV(MOD-sp4): 108.9 ml EDV(MOD-sp2): 80.1 ml LAV(MOD-sp4): 42.6 ml EDV(sp4-el): 109.5 ml EDV(sp2-el): 81.0 ml LVAs ap4: 18.5 cm2 LVAs ap2: 14.0 cm2 LVLs ap4: 7.2 cm LVLs ap2: 6.5 cm ESV(MOD-sp4): 40.5 ml ESV(MOD-sp2): 24.7 ml ESV(sp4-el): 40.7 ml ESV(sp2-el): 25.3 ml EF(MOD-sp4): 62.8 % EF(MOD-sp2): 69.2 % EF(sp4-el): 62.8 % SV(MOD-sp4): 68.4 ml SV(MOD-sp2): 55.4 ml SV(sp4-el): 68.8 ml LA A4 area: 16.8 cm2 LA dimension(2D): 4.0 cm RA A4 area: 16.1 cm2 Time Measurements MV dec time: 0.24 sec Doppler Measurements & Calculations MV E max jamaal: 54.7 cm/sec Lat Peak E' Jamaal: 6.8 cm/sec Med Peak E' Jamaal: 3.4 cm/sec MV A max jamaal: 74.8 cm/sec E/E' lat: 8.0 E/E' med: 16.0 MV E/A: 0.73 Ao V2 max: 125.8 cm/sec LV V1 max: 123.0 cm/sec Ao max P.3 mmHg LV V1 max P.0 mmHg ECHO/Echo Complete W/ Contrast Interpretation Summary The study was technically difficult. Contrast injection was performed. Left ventricular systolic function is normal. The estimated ejection fraction is 70 %. The left atrium is mildly enlarged. Trivial mitral valve insufficiency. Trivial tricuspid valve insufficiency. Trivial pulmonic valve insufficiency. Epicardial fat. Unable to estimate RV systolic pressure/pulmonary artery pressure due to techni sammi difficult study. Diastolic function is indeterminate. Ordering Physician: Odalis Valenzuela Referring Physician: NIC[facility]A BL[facility] Performed By: Shandra Emmanuel, DANIEL, RVT
--- NOTE | 2021-04-28 14:47 | CT_ITS ---
STUDY: LOW DOSE CT LUNG CANCER SCREENING REASON FOR EXAM: Male, 65 years old. TOBACCO USE. Patient smokes 3 packs per day for 50 years. RADIATION DOSAGE (If Supplied By Facility): CTDIvol = ( 3.18 ) mGy, DLP = ( 123.00 ) mGycm TECHNIQUE: No contrast was administered. Low dose technique was utilized (average mAS-38 and kVp 120). 1.25 mm axial source images with a slice interval of 1.25-mm were reconstructed in lung windows. 2.5 mm axial source images with a slice interval of 2.5-mm were reconstructed in lung windows. 5.0 mm axial source images with a slice interval of 5.0-mm were reconstructed in soft tissue windows. Nodule measured using lung windows on PACS and/or independent workstation with automated measurement of minimum and maximum diameter. Nodule measurement reported as average diameter rounded to the nearest whole number. Growth is defined as an increase ins size of greater than 1.5 mm. COMPARISON: Comparison is made with prior examination dated 11/15/2020. NODULES: No suspicious nodules are seen. Emphysema: Stable mild degree of scarring at the lung apices. Hyperinflation. Stable mild linear scarring in the lingular segment of the left upper lobe as well as medial aspect of the right middle lobe. Mild scarring at the lung bases. Aorta: Atherosclerotic plaque formation. Coronary arteries: Coronary artery calcification. Heart: Small pericardial effusion. Pulmonary artery: Unremarkable. Mediastinal nodes: Small benign-appearing mediastinal lymph nodes. Other chest and abdominal findings: CT/Low Dose CT Lung Screening IMPRESSION: Lung-RADS category 2 - Continue annual screening with LDCT in 12 months. IMPORTANT NOTES FOR USE: ACR Lung-RADS Version 1.1 Assessment Categories Release Date: 2018 Category: Coded 0-4 bases on nodule(s) with highest degree of suspicion. Negative screen is defined as categories 1 and 2; a positive screen is defined as categories 3 and 4. Category 3 and 4A nodules that are unchanged on interval CT should be coded as category 2, and individuals returned to screening in 12 months. Category 4X: Category 3 or 4 nodules with additional imaging findings that increase the suspicion of lung cancer, such as spiculation, GGN that doubles in size in 1 year, enlarged lymph notes, etc. Category Modifiers: S (significant finding unrelated to lung cancer) Electronically Signed: Jimi Pierre MD at 15:12 EDT , Service support ,
== END ==
PROVIDERS: Referring Provider Nurse Practitioner Adult Health; Visit Provider Nurse Practitioner Adult Health
DX: R06.02 Shortness of breath (principal); I10 Essential (primary) hypertension
CPT/HCPCS: 71271; 93306; Q9957; A4216; C8929; J3490

== ENCOUNTER 2021-05-18 14:50 | Emergency (ER) | payer MEDICAID, SELFPAY ==
[2021-05-18 14:52] VITALS: BP 119/76; PULSE 103; RESP 17; TEMP 36.9; O2SAT 95; BMI 32.2
[2021-05-18 14:55] VITALS: BP 119/76; PULSE 103; RESP 17; TEMP 36.9; O2SAT 95
== END 2021-05-18 16:00 | disposition left against medical advice (07) ==
LOC: ED 16:06
DX: Z53.21 Procedure and treatment not carried out due to patient leaving prior to being seen by health care provider (principal)

== ENCOUNTER 2021-12-17 11:10 | Emergency (ER) | payer MEDICARE, MEDICAID, SELFPAY ==
[2021-12-17 11:11] VITALS: BP 131/111; PULSE 109; RESP 14; TEMP 36.4; O2SAT 97; BMI 26.8
--- NOTE | 2021-12-17 11:40 | EDS_ITS ---
HPI <HOWARD Davis - Last Filed: 12/17/21 11:49> History of Present Illness Chief Complaint: Wound Check Narrative Narrative: Patient presents for postop wound check after colostomy. He is a 66-year-old male with PMH of AAA, adrenal mass, kidney cancer and recent complicated diverticulitis with abscess s/p IR drainage who underwent open sigmoidectomy, colorectal anastomosis, repair of small bowel abscess cavity, and diverting loop ileostomy on 12/05/[address] Barak Millan at [facility]. He has midline abdominal mukesh and has been covering them with gauze. Last night his home health nurse was taking off the gauze and the tape was accidentally over the mukesh. He is worried that there may be opening of the wound. He denies abdominal pain. He has been tolerating normal p.o. intake and having appropriate colostomy output. No fever or chills. PFSH <HOWARD Davis - Last Filed: 12/17/21 11:49> PFSH Home Medications albuterol sulfate 2.5 mg INHALATION Q6H PRN PRN 11/02/18 [History Last Taken 01/18/19] cholecalciferol (vitamin D3) [Vitamin D3] 1,000 unit PO BID 11/02/18 [History Last Taken 01/18/19] fluticasone propionate 1 spray NASAL DAILY 11/02/18 [History Last Taken 01/18/19] lisinopril-hydrochlorothiazide 1 ea PO DAILY 11/02/18 [History Last Taken 01/18/19] loratadine [Allergy Relief (loratadine)] 10 mg PO DAILY 11/02/18 [History Last Taken 01/18/19] omeprazole 20 mg PO DAILY 11/02/18 [History Last Taken 01/18/19] aspirin 81 mg PO DAILY@0800 01/19/19 [History Last Taken 01/18/19] budesonide 0.5 mg INHALATION DAILY 01/19/19 [History Last Taken 01/18/19] guaifenesin [Mucus Relief ER] 1,200 mg PO BID #14 tablet 01/23/19 [Rx Last Taken Unknown] levofloxacin 750 mg PO DAILY@0600 #2 tablet 01/23/19 [Rx Last Taken Unknown] nicotine 21 mg TRANSDERM. DAILY #28 patch 01/23/19 [Rx Last Taken Unknown] prednisone 10 mg PO UD #30 tab 01/23/19 [Rx Last Taken Unknown] cephalexin 500 mg PO Q6 #28 capsule 12/17/21 [Rx Last Taken Unknown] Allergy/AdvReac Type Severity Reaction Status Date / Time No Known Allergies Allergy Verified 12/17/21 11:14 Social History Smoking Status: Current every day smoker tobacco type: cigarettes ROS <HOWARD Davis - Last Filed: 12/17/21 11:49> ROS ED ROS Narrative Constitutional: Negative for fever, chills, malaise. Eyes: Negative for visual change. ENT: Negative for sore throat, ear pain, rhinorrhea. CVS: Negative for palpitations, chest pain, syncope. Respiratory: Negative for shortness of breath, cough, orthopnea. GI: Negative for abdominal pain, nausea, vomiting, diarrhea, constipation, melena, hematochezia. : Negative for dysuria, hematuria or frequency. Neuro: Negative for headache, motor/sensory dysfunction. Skin: Positive for wound. Negative for rash, abscess. Musc: Negative for joint pain, swelling, trauma. Heme: Negative for easy bruising, bleeding, lymphadenopathy. EXAM <HOWARD Davis - Last Filed: 12/17/21 11:49> Physical Exam Narrative Exam Narrative: CONST: Patient sitting in no acute distress. EYES: Normal inspection. ENT: Normal inspection, moist mucous membranes. NECK: Normal inspection. RESP: No respiratory distress, CTAB. CVS: Regular rate and rhythm, no murmur, no gallop. ABD: Soft and nontender, no guarding or rebound, nondistended. There is a midline abdominal incision from above the umbilicus extending below the pannus. [place] are in place with only 1 staple under the pannus removed causing a very small area of dehiscence. There is some clear serosanguineous drainage but nothing purulent. No surrounding erythema or red streaking. The ostomy itself is in place with no surrounding erythema or drainage. Normal thin brown/green stool in the bag. SKIN: See above EXTREMITIES: Normal appearance, no pedal edema. NEURO: Oriented x4. PSYCH: Normal affect. Const Vital Signs: 12/17/21 11:11 Temperature 97.6 F L Temperature Source Temporal Pulse Rate 109 H Respiratory Rate 14 Blood Pressure 131/111 H Blood Pressure Mean 117 Pulse Ox 97 Oxygen Delivery Method Room Air <Dr. Jacob Fritz MD - Last Filed: 12/17/21 12:07> Physical Exam Const Vital Signs: 12/17/21 11:11 Temperature 97.6 F L Temperature Source Temporal Pulse Rate 109 H Respiratory Rate 14 Blood Pressure 131/111 H Blood Pressure Mean 117 Pulse Ox 97 Oxygen Delivery Method Room Air MDM <HOWARD Davis - Last Filed: 12/17/21 11:49> [facility] Narrative Medical decision making narrative: 2 weeks ago patient had diverticulitis with abscess with sigmoidectomy and colorectal anastomosis and ostomy bag. He presents for a postop wound check. He appears well nontoxic. Afebrile, heart rate 109, otherwise normal vital signs. On examination his ostomy bag is in place with normal output and no surrounding signs of infection. He does have a large midline abdominal surgical incision that is stapled. There is small amount of clear serosanguineous drainage in several spots. There is a 1 cm area of dehiscence under the pannus from where a staple was accidentally removed this morning from the tape from his gauze. There is no sign of bobby infection. The abdomen itself is soft, nontender. I really do not feel that he needs labs or imaging as he has been tolerating p.o. intake, afebrile, and has normal ostomy output. For caution he will be placed on Keflex 4 times daily x1 week with the first dose given here. He was advised to follow-up with his surgeon Dr. Millan at and counseled on return precautions. He was discharged in stable condition. Diagnoses 1. Recent abdominal surgery and ileostomy 2. Postop wound check?small wound dehiscence <Dr. Jacob Fritz MD - Last Filed: 12/17/21 12:07> [facility] Narrative Medical decision making narrative: Patient presents with concern for wound 2 weeks postoperative. He had surgery for above indications. He states he has no fevers chills. He is not having pain. He is eating and drinking well. His ostomy has normal output. He notices he is getting occasional serous and bloody drainage from the lower part of the incision for a few days. A staple was accidentally pulled out when it stopped to tape yesterday. He would just like this incision checked. Exam shows the patient to be awake alert nontoxic. His ostomy looks pink and healthy with good drainage. There is not leakage around it onto the wound at this time. The upper part of the wound is healing well. But as you go low or it seems to be healing a little slower. The bottom portion has a staple missing and has a little bit of serous drainage and moisture. This is also where his skin folded back on itself. There is really no notable erythema. There is no significant drainage purulent drainage or odor. There is no tenderness. I do not think this patient needs scanning or blood work. He is doing quite well overall. He is healing well. I think if we start him on antibiotics that this will be appropriate. We also discussed wound care dressings and keeping this dry. We discussed reasons to return. He will contact his surgeon on Sunday for repeat check. If he develops fevers chills pain drainage vomiting or any other concerns in the meantime he should return. Discharge Plan Triage Chief Complaint: Wound Check ED Provider: Jovanna Valle Dx/Rx/DC Orders Clinical Impression: Abdominal wound dehiscence Instructions: ED Wound Check (Infection) Prescriptions: New cephalexin 500 mg capsule 500 mg PO Q6 Qty: 28 RF: 0 No Action albuterol sulfate 2.5 MG/3 ML solution for nebulization 2.5 mg inhalation Q6H PRN PRN (Reason: Sob &/Or Wheezing) RF: 0 lisinopril-hydrochlorothiazide 1 EACH tablet 1 ea PO DAILY RF: 0 omeprazole 20 MG capsule 20 mg PO DAILY RF: 0 fluticasone propionate 1 SPRAY spray,suspension 1 spray NASAL DAILY RF: 0 loratadine [Allergy Relief (loratadine)] 10 MG tablet 10 mg PO DAILY RF: 0 cholecalciferol (vitamin D3) [Vitamin D3] 1,000 UNIT tablet 1,000 unit PO BID RF: 0 budesonide 0.5 MG/2 ML suspension for nebulization 0.5 mg inhalation DAILY RF: 0 aspirin 81 MG tablet,chewable 81 mg PO DAILY@0800 RF: 0 levofloxacin 750 MG tablet 750 mg PO DAILY@0600 Qty: 2 RF: 0 guaifenesin [Mucus Relief ER] 1,200 MG tablet 1,200 mg PO BID Qty: 14 RF: 0 prednisone 10 MG tablet 10 mg PO UD Qty: 30 RF: 0 nicotine 21 MG patch 21 mg TRANSDERM. DAILY Qty: 28 RF: 0 Primary Care Provider: [facility] Yaquelin Batres Referrals: [facility],Yaquelin Chery [Primary Care Provider] - Activity Restrictions/Additional Instructions: There is no big sign of infection there still is some drainage so we will start you on an antibiotic called Keflex to take 4 times a day for the next week. Please keep it covered with gauze. You can also put a towel under the fold of your abdomen. Follow-up with your surgeon as scheduled. If you have worsening symptoms before then come back to the ER. Disposition Disposition: Home, Self Care Discharge Date/Time: 12/17/21 12:04
[2021-12-17] MEDS: Cephalexin 250 MG Capsule 500 MG PO (11:51)
--- NOTE | 2021-12-17 12:03 | ED.RN ---
WOUND COVERED WITH PETROLEUM GAUZE, ABD'S AND MEDIPORE TAPE.
== END 2021-12-17 12:04 | disposition home or self-care (01) ==
PROVIDERS: Emergency Provider Physician Assistant; Visit Provider Physician Assistant
DX: T81.31XA Disruption of external operation (surgical) wound, not elsewhere classified, initial encounter (principal); Z93.3 Colostomy status; Z93.2 Ileostomy status; I71.4 Abdominal aortic aneurysm, without rupture; F17.210 Nicotine dependence, cigarettes, uncomplicated; Z85.528 Personal history of other malignant neoplasm of kidney; Z87.19 Personal history of other diseases of the digestive system; Z79.899 Other long term (current) drug therapy; Z79.82 Long term (current) use of aspirin
CPT/HCPCS: 99283

== ENCOUNTER 2022-02-11 09:40 | Emergency (ER) | payer MEDICARE, SELFPAY ==
[2022-02-11] VITALS (22 sets, daily range): BP systolic 92–158; BP diastolic 70–104; PULSE 62–87; RESP 14–20; TEMP 36.4; O2SAT 91–100; BMI 27.8
--- NOTE | 2022-02-11 10:06 | CT_ITS ---
STUDY: CT ABDOMEN AND PELVIS WITH AND WITHOUT CONTRAST REASON FOR EXAM: Male, 66 years old. Hematuria, H/O renal CA RADIATION DOSAGE (If Supplied By Facility): CTDIvol = ( 20.95 ) mGy, DLP = ( 2317.41 ) mGycm TECHNIQUE: Transaxial images were obtained from the dome of the diaphragm to the symphysis pubis without oral contrast. IV 100mL Isovue-300 was administered. Sagittal and coronal images were reconstructed. Individualized dose optimization techniques were used for this CT. COMPARISON: None. FINDINGS: Hypoventilatory changes the left lung base. Linear atelectasis or scarring extending to the inferior left major fissure. The visualized portions of the heart are within normal limits. There is hepatomegaly with diffuse hepatic enlargement. Normal gallbladder and extrahepatic biliary system. Normal spleen. Normal pancreas. 2.2 cm mass in the left adrenal gland. Unremarkable right adrenal gland. Focal irregularity and defect in the lateral aspect of the right kidney with perinephric stranding. Right double-J stent catheter with proximal tip in the right renal pelvis and the distal tip in the bladder. Mild prominence of the right renal pelvis. Unremarkable left kidney. Normal visualized stomach. Ileostomy in the right lower quadrant. Diverticulosis of the sigmoid colon. No evidence of acute diverticulitis. Surgical anastomosis sutures in the rectosigmoid junction region. The descending colon is not well-distended. There is non-visualization of the appendix. Large infrarenal abdominal aortic aneurysm measuring about 5.4 cm in AP diameter. Linear area of extravasated contrast within the peripheral clots seen on axial image [id number] series 3 and coronal images 79-81 series 602. The aneurysm extends for a length of approximately 11 cm involving the left common iliac artery. Normal inferior vena cava. Normal retroperitoneum. Thickening of the bladder wall could be due to underdistention. Enlarged prostate with calcifications. Correlation with PSA level is recommended. Normal abdominal wall. Mild degenerative changes in the spine. CT/CT Abd/Pelvis W/WO Contrast IMPRESSION: 1. Large infrarenal abdominal aortic aneurysm with focal extravasation of contrast confined within the lumen of the aneurysm and peripheral clots as described above. Vascular surgical consultation is recommended. 2. Right lower quadrant ileostomy without evidence of small bowel obstruction. 3. Irregularity of the lateral aspect of the right kidney. Right double J stent catheter. No evidence of right hydronephrosis. 4. Diverticulosis without evidence of acute diverticulitis. 5. Thickening of the gastric wall could be due to underdistention. 6. Enlarged prostate. Correlation with PSA level is recommended. N.B. : The above Results were Read Back by Juan Diego Gonzalez MD to Yolanda Gillespie MD, and understanding confirmed on 02/11/2022 12:30:42 (ET). Electronically Signed: Juan Diego Gonzalez MD at 12:31 EDT ,
--- NOTE | 2022-02-11 10:08 | EDS_ITS ---
HPI History of Present Illness Chief Complaint: Complaint Detail of Chief Complaint: Hematuria Informant: patient Onset/Context/Timing Onset: Today Narrative Narrative: Patient reports noting hematuria upon waking this morning. He denies pain. He does have a history of renal carcinoma with a partial nephrectomy performed a year ago at . [facility] Medical History (Updated 02/11/22 @ 13:[address] Yolanda Gillespie MD) Anxiety Colostomy in place COPD (chronic obstructive pulmonary disease) Hypertension Renal carcinoma Home Medications albuterol sulfate 2.5 mg inhalation Q6H PRN PRN Sob &/Or Wheezing 11/02/18 [History Last Taken 01/18/19] cholecalciferol (vitamin D3) 25 mcg (1,000 unit) tablet (Vitamin D3) 1,000 unit PO BID 11/02/18 [History Last Taken 01/18/19] fluticasone propionate 50 mcg/actuation nasal spray,suspension 1 spray DAILY 11/02/18 [History Last Taken 01/18/19] lisinopril 20 mg-hydrochlorothiazide 12.5 mg tablet 1 ea PO DAILY 11/02/18 [History Last Taken 01/18/19] loratadine 10 mg tablet (Allergy Relief (loratadine)) 10 mg PO DAILY 11/02/18 [History Last Taken 01/18/19] omeprazole 20 mg capsule,delayed release 20 mg PO DAILY 11/02/18 [History Last Taken 01/18/19] aspirin 81 mg chewable tablet 81 mg PO DAILY@0800 01/19/19 [History Last Taken 01/18/19] budesonide 0.5 mg/2 mL suspension for nebulization 0.5 mg inhalation DAILY 01/19/19 [History Last Taken 01/18/19] guaifenesin 1,200 mg tablet, extended release 12 hr (Mucus Relief ER) 1,200 mg PO BID ##14 01/23/19 [Rx Last Taken Unknown] levofloxacin 750 mg tablet 750 mg PO DAILY@0600 ##2 01/23/19 [Rx Last Taken Unknown] nicotine 21 mg/24 hr daily transdermal patch 21 mg TRANSDERM. DAILY #28 patches 01/23/19 [Rx Last Taken Unknown] prednisone 10 mg tablet 10 mg PO UD #30 tabs 01/23/19 [Rx Last Taken Unknown] cephalexin 500 mg capsule 500 mg PO Q6 #28 CAPSULES 12/17/21 [Rx Last Taken Unknown] Allergy/AdvReac Type Severity Reaction Status Date / Time No Known Allergies Allergy Verified 12/17/21 11:14 Surgical History (Updated 02/11/22 @ 10:[address] Yolanda Gillespie MD) H/O partial nephrectomy Social History Smoking Status: Current every day smoker tobacco type: cigarettes ROS ROS ED Constitutional Constitutional ED: Denies chills or fever(s) Eyes Eyes: Denies change in vision or discharge from eye(s) ENT ENT ED: Denies discharge from eye(s), rhinorrhea or sore throat Cardiovascular Cardiovascular: Denies chest pain or palpitations Respiratory/Chest Respiratory/Chest: Denies cough or dyspnea Gastrointestinal Gastrointestinal: Denies abdominal pain, diarrhea, nausea or vomiting Genitourinary Genitourinary ED: Reports hematuria; Denies difficulty urinating or dysuria Musculoskeletal Musculoskeletal: Denies back pain or extremity pain Integumentary Denies Abrasions or rash Neurologic Neurologic: Denies headache(s) or weakness Psychiatric Psychiatric: Denies anxiety or depression Allergic/Immunologic Allergic/Immunologic ED: Denies lip swelling or urticaria EXAM Physical Exam Const Vital Signs: 02/11/22 09:41 02/11/22 11:43 02/11/22 13:06 Temperature 97.6 F L Temperature Source Temporal Pulse Rate 70 87 Respiratory Rate 16 16 16 Blood Pressure 153/104 H 158/102 H Blood Pressure Mean 120 120 Blood Pressure Position Blood Pressure Location Pulse Ox 100 98 Oxygen Delivery Method Room Air Room Air 02/11/22 13:30 02/11/22 13:37 02/11/22 13:45 Temperature Temperature Source Pulse Rate 70 63 64 Respiratory Rate 15 19 H 19 H Blood Pressure 158/102 H 158/102 H 129/87 H Blood Pressure Mean 120 120 101 Blood Pressure Position Semi-Fowlers Semi-Fowlers Blood Pressure Location Left Arm Pulse Ox 98 98 95 Oxygen Delivery Method Room Air Room Air 02/11/22 13:46 02/11/22 14:00 02/11/22 14:02 Temperature Temperature Source Pulse Rate 65 66 65 Respiratory Rate 19 H 16 Blood Pressure 129/87 H 119/82 H 119/82 H Blood Pressure Mean 101 94 94 Blood Pressure Position Blood Pressure Location Pulse Ox Oxygen Delivery Method 02/11/22 14:17 02/11/22 14:18 02/11/22 14:31 Temperature Temperature Source Pulse Rate 63 65 63 Respiratory Rate 20 H 16 18 Blood Pressure 109/80 109/80 100/76 Blood Pressure Mean 89 89 84 Blood Pressure Position Blood Pressure Location Pulse Ox Oxygen Delivery Method 02/11/22 14:31 02/11/22 14:48 02/11/22 14:48 Temperature Temperature Source Pulse Rate 63 62 62 Respiratory Rate 16 17 Blood Pressure 100/76 95/73 95/73 Blood Pressure Mean 84 80 80 Blood Pressure Position Blood Pressure Location Pulse Ox Oxygen Delivery Method 02/11/22 15:01 02/11/22 15:01 02/11/22 15:00 Temperature Temperature Source Pulse Rate 63 63 Respiratory Rate 20 H 20 H 18 Blood Pressure 101/73 101/72 Blood Pressure Mean 82 81 Blood Pressure Position Blood Pressure Location Pulse Ox Oxygen Delivery Method 02/11/22 15:15 02/11/22 15:34 02/11/22 15:30 Temperature Temperature Source Pulse Rate 63 63 62 Respiratory Rate 14 Blood Pressure 94/75 94/75 96/73 Blood Pressure Mean 81 81 80 Blood Pressure Position Blood Pressure Location Pulse Ox 93 Oxygen Delivery Method Room Air 02/11/22 15:40 02/11/22 15:50 02/11/22 16:00 Temperature Temperature Source Pulse Rate 63 64 65 Respiratory Rate 18 16 18 Blood Pressure 96/73 97/77 92/70 Blood Pressure Mean 80 83 77 Blood Pressure Position Blood Pressure Location Pulse Ox 93 92 91 Oxygen Delivery Method Room Air Room Air 02/11/22 16:29 Temperature Temperature Source Pulse Rate 63 Respiratory Rate Blood Pressure 98/74 Blood Pressure Mean 82 Blood Pressure Position Blood Pressure Location Pulse Ox Oxygen Delivery Method Positive well nourished and well developed General Appearance ED: well developed HEENT Reports normocephalic and head/scalp atraumatic Eyes PERRL and EOMs intact bilaterally Neck supple Chest Wall inspection of chest normal and palpation of chest normal Resp normal respiratory effort Resp Narrative: Mild expiratory wheezes. Cardio regular rate and regular rhythm GI normal to inspection, nondistended, normoactive bowel sounds Palpation: soft Back/Spine no CVA tenderness Extremity normal to inspection Neuro oriented x3 and no sensory deficits noted Sensorium / Orientation: alert Motor Exam: strength 5/5 throughout Psych mental status grossly normal Skin no rashes or lesions noted MDM MDM MDM Narrative Medical decision making narrative: Lab work and urinalysis obtained. Patient sent for CT scan with and without contrast. Lab Data Attestation: I reviewed the patient's lab results. Labs: Laboratory Results - last 24 hr 02/11/22 02/11/22 02/11/22 10:21 10:25 10:25 WBC Cancelled Corrected WBC Cancelled RBC Cancelled Hgb Cancelled Hct Cancelled MCV Cancelled MCH Cancelled MCHC Cancelled RDW Std Deviation Cancelled RDW Coeff of Xochilt Cancelled Plt Count Cancelled MPV Cancelled Immature Gran % (Auto) Cancelled Neut % (Auto) Cancelled Lymph % (Auto) Cancelled [place] % (Auto) Cancelled Eos % (Auto) Cancelled Baso % (Auto) Cancelled Absolute Neuts (auto) Cancelled Absolute Lymphs (auto) Cancelled Total Counted Cancelled Neutrophils % (Manual) Cancelled Band Neutrophils % Cancelled Lymphocytes % (Manual) Cancelled Monocytes % (Manual) Cancelled Eosinophils % (Manual) Cancelled Basophils % (Manual) Cancelled Metamyelocytes % Cancelled Myelocytes % Cancelled Promyelocytes % Cancelled Blast Cells % Cancelled Plasma Cell % (Manual) Cancelled Other Cells % Cancelled Nucleated RBC % Cancelled Nucleated RBCs/100 WBC Cancelled Differential Comment Cancelled Diff Path Review Cancelled Hypersegmented Neuts Cancelled Atypical Lymphocytes Cancelled Reactive Lymphocytes Cancelled Smudge Cells Cancelled Toxic Granulation Cancelled Toxic Vacuolation Cancelled Dohle Bodies Cancelled Clarisa Rods Cancelled Platelet Estimate Cancelled Plt Morphology Comment Cancelled RBC Morphology Cancelled Polychromasia Cancelled Hypochromasia Cancelled Poikilocytosis Cancelled Basophilic Stippling Cancelled Anisocytosis Cancelled Microcytosis Cancelled Macrocytosis Cancelled Spherocytes Cancelled Sickle Cells Cancelled Target Cells Cancelled Tear Drop Cells Cancelled Ovalocytes Cancelled Stomatocytes Cancelled [place] Bodies Cancelled [place] Cells Cancelled Bite Cells Cancelled Crenated Cell Cancelled Acanthocytes (Spur) Cancelled Rouleaux Cancelled Schistocytes Cancelled Sodium 143 Potassium 3.6 Chloride 110 H Carbon Dioxide 26.0 Anion Gap 7 BUN 16 Creatinine 0.88 Estim Creat Clear Calc 79.29 Est GFR (MDRD) Af Amer 112 Est GFR (MDRD) Non-Af 92 BUN/Creatinine Ratio 18.1 Glucose 90 Calcium 7.8 L Urine Color Yellow Urine Clarity Sl. Cloudy Urine pH 6.0 Ur Specific [place] 1.020 Urine Protein 30 H Urine Glucose (UA) Normal Urine Ketones Negative Urine Occult Blood 250 H Urine Nitrite Negative Urine Bilirubin Negative Urine Urobilinogen Normal Ur Leukocyte Esterase 100 H Urine RBC > 100 SEEN Urine WBC 0 SEEN Ur Squamous Epith Cells 0 SEEN Urine Bacteria 0 SEEN Urine Mucus 0 SEEN 02/11/22 10:45 WBC 11.7 H Corrected WBC RBC 3.85 L Hgb 11.6 L Hct 35.9 L MCV 93.2 MCH 30.1 MCHC 32.3 RDW Std Deviation 50.5 H RDW Coeff of Xochilt 14.8 H Plt Count 239 MPV 10.2 Immature Gran % (Auto) 0.400 Neut % (Auto) 66.3 Lymph % (Auto) 24.7 [place] % (Auto) 5.0 Eos % (Auto) 2.8 Baso % (Auto) 0.8 Absolute Neuts (auto) 7.7 Absolute Lymphs (auto) 2.88 Total Counted Neutrophils % (Manual) Band Neutrophils % Lymphocytes % (Manual) Monocytes % (Manual) Eosinophils % (Manual) Basophils % (Manual) Metamyelocytes % Myelocytes % Promyelocytes % Blast Cells % Plasma Cell % (Manual) Other Cells % Nucleated RBC % 0 Nucleated RBCs/100 WBC Differential Comment Diff Path Review Hypersegmented Neuts Atypical Lymphocytes Reactive Lymphocytes Smudge Cells Toxic Granulation Toxic Vacuolation Dohle Bodies Clarisa Rods Platelet Estimate Plt Morphology Comment RBC Morphology Polychromasia Hypochromasia Poikilocytosis Basophilic Stippling Anisocytosis Microcytosis Macrocytosis Spherocytes Sickle Cells Target Cells Tear Drop Cells Ovalocytes Stomatocytes [place] Bodies [place] Cells Bite Cells Crenated Cell Acanthocytes (Spur) Rouleaux Schistocytes Sodium Potassium Chloride Carbon Dioxide Anion Gap BUN Creatinine Estim Creat Clear Calc Est GFR (MDRD) Af Amer Est GFR (MDRD) Non-Af BUN/Creatinine Ratio Glucose Calcium Urine Color Urine Clarity Urine pH Ur Specific [place] Urine Protein Urine Glucose (UA) Urine Ketones Urine Occult Blood Urine Nitrite Urine Bilirubin Urine Urobilinogen Ur Leukocyte Esterase Urine RBC Urine WBC Ur Squamous Epith Cells Urine Bacteria Urine Mucus Radiography Diagnostic Testing: Clinical Impression(s) from Imaging Studies Abdomen/Pelvis CT 02/11/22 10:06 IMPRESSION: 1. Large infrarenal abdominal aortic aneurysm with focal extravasation of contrast confined within the lumen of the aneurysm and peripheral clots as described above. Vascular surgical consultation is recommended. 2. Right lower quadrant ileostomy without evidence of small bowel obstruction. 3. Irregularity of the lateral aspect of the right kidney. Right double J stent catheter. No evidence of right hydronephrosis. 4. Diverticulosis without evidence of acute diverticulitis. 5. Thickening of the gastric wall could be due to underdistention. 6. Enlarged prostate. Correlation with PSA level is recommended. N.B. : The above Results were Read Back by Juan Diego Gonzalez MD to Yolanda Gillespie MD, and understanding confirmed on 02/11/2022 12:30:42 (ET). Electronically Signed: Juan Diego Gonzalez MD at 12:31 EDT , ADDENDUM: 02/11/22 1238 IMPRESSION: 1. Large infrarenal abdominal aortic aneurysm with focal extravasation of contrast confined within the lumen of the aneurysm and peripheral clots as described above. Vascular surgical consultation is recommended. 2. Right lower quadrant ileostomy without evidence of small bowel obstruction. 3. Irregularity of the lateral aspect of the right kidney. Right double J stent catheter. No evidence of right hydronephrosis. 4. Diverticulosis without evidence of acute diverticulitis. 5. Thickening of the gastric wall could be due to underdistention. 6. Enlarged prostate. Correlation with PSA level is recommended. N.B. : The above Results were Read Back by Juan Diego Gonzalez MD to Yolanda Gillespie MD, and understanding confirmed on 02/11/2022 12:30:42 (ET). Electronically Signed: Juan Diego Gonzalez MD at 12:31 EDT , Treatment and Re-Evaluation Narrative: Patient has a white count of 11.7 with no left shift. Urinalysis reveals greater than 100 red cells with no bacteria. Renal function is normal. CT scan is significant for a large infrarenal abdominal aortic aneurysm with focal extravasation of contrast confined within the lumen of the aneurysm. Peripheral clots are also noted. I was able to review an old CT that was performed in October. Aneurysm size is similar, 5.3 cm in greatest AP dimension at that time. There is no comment on prior extravasation. In light of this, test results are discussed with patient at bedside. I did recommend transfer back to for further evaluation now that he is having evidence of extravasation. Patient has been accepted by the [facility] deck[facility] and we are awaiting bed assignment at this time. I received a return call from the [facility] deck[facility] that was accepting the patient at . They are going to admit him to the ICU. They would like nicardipine drip started to keep systolic blood pressure under 120 and esmolol drip started to keep heart rate less than 60. Discharge Plan Triage Chief Complaint: Complaint ED Provider: Yolanda Gillespie Dx/Rx/DC Orders Clinical Impression: Hematuria, Abdominal aortic aneurysm Prescriptions: No Action albuterol sulfate 2.5 MG/3 ML solution for nebulization 2.5 mg inhalation Q6H PRN PRN (Reason: Sob &/Or Wheezing) lisinopril-hydrochlorothiazide 1 EACH tablet 1 ea PO DAILY omeprazole 20 MG capsule 20 mg PO DAILY fluticasone propionate 1 SPRAY spray,suspension 1 spray NASAL DAILY loratadine [Allergy Relief (loratadine)] 10 MG tablet 10 mg PO DAILY cholecalciferol (vitamin D3) [Vitamin D3] 1,000 UNIT tablet 1,000 unit PO BID budesonide 0.5 MG/2 ML suspension for nebulization 0.5 mg inhalation DAILY aspirin 81 MG tablet,chewable 81 mg PO DAILY@0800 levofloxacin 750 MG tablet 750 mg PO DAILY@0600 Qty: 2 0RF guaifenesin [Mucus Relief ER] 1,200 MG tablet 1,200 mg PO BID Qty: 14 0RF prednisone 10 MG tablet 10 mg PO UD Qty: 30 0RF Rx Instructions: TAKE 4 TABLETS BY MOUTH DAILY WITH FOOD FOR 3 DAYS, THEN TAKE 3 TABLETS BY MOUTH DAILY WITH FOOD FOR 3 DAYS, THEN TAKE 2 TABLETS BY MOUTH DAILY WITH FOOD FOR 3 DAYS, THEN TAKE 1 TABLETS BY MOUTH DAILY WITH FOOD FOR 3 DAYS, THEN STOP nicotine 21 MG patch 21 mg TRANSDERM. DAILY Qty: 28 0RF cephalexin 500 mg capsule 500 mg PO Q6 Qty: 28 0RF Primary Care Provider: Yaquelin Razo [facility] [Primary Care Provider] - Disposition Disposition: Acute Care Hospital Discharge Location: Main Discharge Date/Time: 02/11/22 16:59
[2022-02-11 10:31] LABS: Bacteria 0 SEEN /hpf (None Seen); Mucous, Urine 0 SEEN /hpf (<or=2+); Squamous Epithelial Cells - UA 0 SEEN /hpf (0-5); White Blood Cells 0 SEEN /hpf (0-5)
[2022-02-11 10:32] LABS: Color, Urine Yellow (Yellow); Glucose, Dipstick Normal (Normal); Ketone-Dipstick Negative (Negative); Leukocyte Esterase-Dipstick 100 /ul (Negative); Nitrite-Dipstick Negative (Negative); Occult Blood-Urine 250 /ul (Negative); Protein-Dipstick 30 mg/dl (Negative); Urine Bilirubin Dipstick Negative (Negative); Urine Clarity Sl. Cloudy (Clear); Urine Urobilinogen Normal (Normal)
[2022-02-11] MEDS: 0.9% Normal Saline 1,000 ML 150 ML IV (10:37)
[2022-02-11 10:39] LABS: Red Blood Cells-Urine > 100 SEEN /hpf (0-5)
[2022-02-11 10:50] LABS: Anion Gap 7 (5-15); BUN 16 mg/dL (7-18); BUN/Creat Ratio 18.1 RATIO (10-20); Calcium,Total 7.8 mg/dL (8.5-10.1); Chloride 110 mmol/L (98-107); Creatinine, Serum 0.88 mg/dL (0.70-1.30); EST Glomerular Filtration Rate 92 mL/min (>60); Est Glom Filt Rate - Afr Amer 112 mL/min (>60); Estimated Creatinine Clearance 79.29 ml/min; Glucose 90 mg/dL (74-106); Potassium 3.6 mmol/L (3.5-5.1); Sodium Level 143 mmol/L (136-145)
[2022-02-11 10:55] LABS: Absolute Lymphocyte Count 2.88 X10^3/uL (0.83-4.51); Absolute Neutrophil Count 7.7 X10^3/uL (2.0-7.7); Basophil# 0.09 X10^3/uL; Basophil% 0.8 % (0-1); Eosinophil# 0.33 X10^3/uL; Eosinophils% 2.8 % (0-5); Hematocrit 35.9 % (40-54); Hemoglobin 11.6 g/dL (13.0-16.5); Lymphocyte # 2.88 X10^3/ul (0.83-4.51); Lymphocyte % 24.7 % (19-41); Mean Corp Hgb Conc 32.3 g/dL (32-36); Mean Corpuscular Hgb 30.1 pg (27.0-32.0); Mean Corpuscular Volume 93.2 fL (80-94); Mean Platelet Vol. 10.2 fl (6.2-12.0); Monocyte# 0.58 X10^3/uL; NRBC Flagged by Analyzer 0 % (0-5); Neutrophil # 7.72 X10^3/uL (2.7-7.7); Neutrophil % 66.3 % (47-70); Platelet Count 239 K/mm3 (150-450); RBC Distribution Width CV 14.8 % (11.6-14.6); RBC Distribution Width SD 50.5 fl (35.1-43.9); Red Blood Count 3.85 M/mm3 (4.6-6.2); White Blood Count 11.7 K/mm3 (4.4-11.0)
[2022-02-11] MEDS: Esmolol 2,500 MG/250 ML IV.SOLN. 24.2 MG CONT INF (13:30)
[2022-02-11] MEDS: Nicardipine HCl-0.9% Sod Chlor 20 MG/200 ML IV.SOLN 50 MG CONT INF (13:37)
[2022-02-11] MEDS: Nicardipine HCl-0.9% Sod Chlor 20 MG/200 ML IV.SOLN 75 MG CONT INF (16:30)
--- NOTE | 2022-02-11 16:33 | ED.RN ---
[facility] HERE TO WATER SERVER PT, ESMOLOL BAG EMPTY. CALLED PHARMACY TO SEND UP BAG VICTOR MANUEL
[2022-02-11] MEDS: Esmolol 2,500 MG/250 ML IV.SOLN. 96.9 MG CONT INF (16:38)
== END 2022-02-11 16:59 | disposition short-term general hospital (02) ==
PROVIDERS: Emergency Provider Emergency Medicine; Visit Provider Emergency Medicine
DX: R31.9 Hematuria, unspecified (principal); J44.9 Chronic obstructive pulmonary disease, unspecified; I71.4 Abdominal aortic aneurysm, without rupture; I10 Essential (primary) hypertension; F17.210 Nicotine dependence, cigarettes, uncomplicated; Z85.528 Personal history of other malignant neoplasm of kidney; Z90.5 Acquired absence of kidney; F41.9 Anxiety disorder, unspecified; Z79.899 Other long term (current) drug therapy; Z79.82 Long term (current) use of aspirin
CPT/HCPCS: 74178; 80048; 81001; 85025; 87811; 96361; 96365; 96366; 96368; 99285; J7030; Q9967; A4216

== ENCOUNTER 2022-02-14 17:04 | Emergency (ER) | payer MEDICARE, MEDICAID, SELFPAY ==
[2022-02-14 17:06] VITALS: BP 129/91; PULSE 72; RESP 16; TEMP 37.1; O2SAT 97; BMI 27.8
[2022-02-14 18:00] VITALS: BP 139/103; PULSE 75; RESP 16; O2SAT 98
--- NOTE | 2022-02-14 18:13 | EDS_ITS ---
HPI History of Present Illness Chief Complaint: Upper Extremity Injury Informant: patient and spouse/S.O. Narrative Narrative: Presents increasing swelling pain right antecubital over last couple days. Had IV placed and seen in the ED on Sunday he was transferred up to . Patient discharged on Sunday. Symptoms started the evening. No chest pains or shortness of breath. He states he was transferred up due to blood in the urine. He states he had a cath which was stable and discharged the next day. Reviewing records had concerning periaortic stent leak. There is no interventions per patient. Denies any current abdominal pain. He is here for his right arm swelling concerning for DVT. No history of DVTs. [facility] Medical History Anxiety Colostomy in place COPD (chronic obstructive pulmonary disease) Hypertension Renal carcinoma Home Medications albuterol sulfate 2.5 mg inhalation Q6H PRN PRN Sob &/Or Wheezing 11/02/18 [History Last Taken 01/18/19] cholecalciferol (vitamin D3) 25 mcg (1,000 unit) tablet (Vitamin D3) 1,000 unit PO BID 11/02/18 [History Last Taken 01/18/19] fluticasone propionate 50 mcg/actuation nasal spray,suspension 1 spray DAILY 11/02/18 [History Last Taken 01/18/19] lisinopril 20 mg-hydrochlorothiazide 12.5 mg tablet 1 ea PO DAILY 11/02/18 [History Last Taken 01/18/19] omeprazole 20 mg capsule,delayed release 20 mg PO DAILY 11/02/18 [History Last Taken 01/18/19] aspirin 81 mg chewable tablet 81 mg PO DAILY@0800 01/19/19 [History Last Taken 01/18/19] budesonide 0.5 mg/2 mL suspension for nebulization 0.5 mg inhalation DAILY 01/19/19 [History Last Taken 01/18/19] nicotine 21 mg/24 hr daily transdermal patch 21 mg TRANSDERM. DAILY #28 patches 01/23/19 [Rx Last Taken Unknown] Allergy/AdvReac Type Severity Reaction Status Date / Time acetaminophen [From Vicodin] AdvReac Itching Verified 02/14/22 17:06 hydrocodone [From Vicodin] AdvReac Itching Verified 02/14/22 17:06 Surgical History H/O partial nephrectomy Social History Smoking Status: Current every day smoker tobacco type: cigarettes ROS ROS ED Constitutional Constitutional ED: Denies chills, fever(s) or sweats Eyes Eyes: Denies change in vision ENT ENT ED: Denies dysphagia or sore throat Cardiovascular Cardiovascular: Denies chest pain, leg edema, palpitations or racing heartbeat Respiratory/Chest Respiratory/Chest: Denies cough, dyspnea or dyspnea on exertion Gastrointestinal Gastrointestinal: Denies abdominal pain, diarrhea, nausea or vomiting Genitourinary Genitourinary ED: Denies dysuria, hematuria or urinary frequency Musculoskeletal Musculoskeletal: Denies back pain, extremity pain or neck pain Integumentary Reports rash, wounds and other Details: Right antecubital discomfort and swelling. Neurologic Neurologic: Denies headache(s), paresthesias or weakness EXAM Physical Exam Const Vital Signs: 02/14/22 17:06 02/14/22 18:00 Temperature 98.7 F Temperature Source Temporal Pulse Rate 72 75 Respiratory Rate 16 16 Blood Pressure 129/91 H 139/103 H Blood Pressure Mean 103 115 Pulse Ox 97 98 Oxygen Delivery Method Room Air Room Air Positive well nourished and well developed General Appearance ED: well developed and NAD HEENT Reports moist mucous membranes normocephalic and atraumatic Eyes PERRL, EOMs intact bilaterally and conjunctivae normal General Eye ED: Yes normal appearance of both eyes Neck no lymphadenopathy and supple General: Negative for tenderness Chest Wall Chest: Negative for tenderness Resp normal respiratory effort and normal air movement Effort and Inspection: symmetric chest movement; Negative for respiratory distress Cardio regular rate, regular rhythm and no murmurs Peripheral Pulses: pulses 2+ throughout GI normal to inspection, nondistended, normoactive bowel sounds and non-tender Palpation: Negative for guarding or rebound tenderness present Back/Spine no CVA tenderness and no thoracic nor lumbar tenderness Extremity Extremity Narrative: Right upper extremity: There is swelling at the antecubital with erythema there is some erythema proximal forearm and distal humerus. Puncture wound noted at the antecubital. General Extremety ED: Yes edema and tenderness General Extremity: edema Neuro oriented x3 and no sensory deficits noted Sensorium / Orientation: awake and alert Skin no rashes or lesions noted and no wounds MDM MDM MDM Narrative Medical decision making narrative: Patient status post IV antecubital now with increasing swelling and erythema. Likely a superficial thrombophlebitis in this region. With time of day, ultrasound not available to perform his right upper extremity ultrasound. He is ordered for outpatient ultrasound to return tomorrow. This was discussed with the patient understands agrees with plan. All questions answered. Discharge Plan Triage Chief Complaint: Upper Extremity Injury ED Provider: Porfirio Manzo Dx/Rx/DC Orders Clinical Impression: Superficial thrombophlebitis of right upper extremity, History of abdominal aortic aneurysm (AAA) Instructions: ED Thrombophlebitis, Superficial Prescriptions: No Action albuterol sulfate 2.5 MG/3 ML solution for nebulization 2.5 mg inhalation Q6H PRN PRN (Reason: Sob &/Or Wheezing) lisinopril-hydrochlorothiazide 1 EACH tablet 1 ea PO DAILY omeprazole 20 MG capsule 20 mg PO DAILY fluticasone propionate 1 SPRAY spray,suspension 1 spray NASAL DAILY cholecalciferol (vitamin D3) [Vitamin D3] 1,000 UNIT tablet 1,000 unit PO BID budesonide 0.5 MG/2 ML suspension for nebulization 0.5 mg inhalation DAILY aspirin 81 MG tablet,chewable 81 mg PO DAILY@0800 nicotine 21 MG patch 21 mg TRANSDERM. DAILY Qty: 28 0RF Other Ambulatory Orders: Venous Duplex US, Unilateral (Routine) Facility: [facility] - Location: [facility] [place] Ordered By: Dr. Porfirio Manzo Primary Care Provider: Yaquelin Razo Referrals: [facility] Yaquelin Batres [Primary Care Provider] - Activity Restrictions/Additional Instructions: Ultrasound not available to do your right upper extremity today. Return tomorrow to radiology department for your ultrasound. Disposition Disposition: Home, Self Care
[2022-02-14 18:59] VITALS: BP 147/101; PULSE 59
== END 2022-02-14 18:59 | disposition home or self-care (01) ==
PROVIDERS: Emergency Provider Emergency Medicine; Visit Provider Emergency Medicine
DX: I80.01 Phlebitis and thrombophlebitis of superficial vessels of right lower extremity (principal); J44.9 Chronic obstructive pulmonary disease, unspecified; I71.4 Abdominal aortic aneurysm, without rupture; I10 Essential (primary) hypertension; F17.210 Nicotine dependence, cigarettes, uncomplicated; F41.9 Anxiety disorder, unspecified; Z85.528 Personal history of other malignant neoplasm of kidney; Z79.82 Long term (current) use of aspirin; Z79.899 Other long term (current) drug therapy
CPT/HCPCS: 99282

== ENCOUNTER → 2022-02-15 | Outpatient (CLI) | payer MEDICARE, MEDICAID, SELFPAY ==
--- NOTE | 2022-02-15 11:01 | VDUE_ITS ---
Reason For Study: pain Right Proximal Right jugular vein is spontaneous, widely patent, phasic, with no intraluminal echogenicity noted. Right subclavian vein is spontaneous, widely patent, phasic, with no intraluminal echogenicity noted. Right Lower Arm Right radial vein is compressible. Right ulnar vein is compressible. Right Arm Right axillary vein is spontaneous, patent, phasic, competent, compressible and demonstrates augmentation. Brachial V is partially compressible. DVT is hypoechoic consistent with acute DVT. Cephalic V is dilated and noncompressible from the antecubital space to the shoulder. Right basilic vein is compressible. Prelim called to the [facility]. VL/Venous Duplex US, Unilateral Interpretation Summary Deep venous thrombosis right brachial vein. Superficial thrombophlebitis right cephalic vein from the antecubital space to the shoulder Ordering Physician: Porfirio Manzo Performed By: Wily Cardona RVT ?
== END | disposition home or self-care (01) ==
LOC: CVS 11:00
PROVIDERS: Referring Provider Emergency Medicine; Visit Provider Emergency Medicine
DX: M79.601 Pain in right arm (principal)
CPT/HCPCS: 93971

== ENCOUNTER → 2023-03-02 | Outpatient (CLI) | payer MEDICARE, MEDICAID, SELFPAY ==
--- NOTE | 2023-03-02 12:46 | CT_ITS ---
STUDY: CT ABDOMEN AND PELVIS WITHOUT CONTRAST REASON FOR EXAM: Male, 67 years old. VENTRAL HERNIA WITHOUT OBSTRUCTION OR GANGRENE. History of multiple abdominal surgeries with colostomy and reversal. Elevated PSA. RADIATION DOSAGE (If Supplied By Facility): CTDIvol = ( 13.39 ) mGy, DLP = ( 682.67 ) mGycm TECHNIQUE: Transaxial images were obtained from the dome of the diaphragm to the symphysis pubis without oral contrast, and without intravenous contrast. Sagittal and coronal images were reconstructed. Individualized dose optimization techniques were used for this CT. COMPARISON: Comparison is made with prior study dated February 11, 2022. FINDINGS: The visualized lung bases are unremarkable. Small pericardial effusion. Coronary artery calcification. Tortuosity of the descending thoracic aorta at the level of the diaphragmatic hiatus. Stable hepatomegaly. The gallbladder is contracted. Possible tiny gallstones. Normal spleen. Normal pancreas. There is a small, circumscribed, smooth, low attenuation left adrenal mass, consistent with an adrenal adenoma. This measures 2.2 cm and is unchanged. Normal right adrenal gland. Focal irregularity and defect in the upper lateral aspect of the right kidney most likely representing prior partial nephrectomy. Normal left kidney. Normal visualized stomach. Normal small intestine. Normal colon. There is non-visualization of the appendix. Stable abdominal aortic aneurysm with stent graft placement. The tejon abdominal aorta has a transverse dimension of 4.4 cm. Mural thrombus is seen. Normal inferior vena cava. Normal retroperitoneum. Normal urinary bladder. There is enlargement of the prostate gland. Central prostatic calcification. The prostate measures 4.1 cm x 5.9 cm. This causes indentation at the bladder base. The patient is status post umbilical hernia repair. There is evidence of a diastases of the abdominal rectus muscle although no bobby herniation is seen. There are mild degenerative changes of the visualized lumbar spine. CT/Abdomen/Pelvis without Cont IMPRESSION: Abdominal aortic aneurysm with placement of an endoluminal stent graft. Prostatic enlargement. Contracted gallbladder containing gallstones. Small pericardial effusion. Electronically Signed: Jimi Pierre MD at 14:10 EDT ,
== END | disposition home or self-care (01) ==
LOC: CT 12:44
DX: K43.9 Ventral hernia without obstruction or gangrene (principal)
CPT/HCPCS: 74176

== ENCOUNTER 2023-07-04 12:50 | Emergency (ER) | payer MEDICARE, MEDICAID, SELFPAY ==
[2023-07-04 12:50] VITALS: BP 116/79; PULSE 89; RESP 16; TEMP 36.3; O2SAT 99; BMI 29.4
--- NOTE | 2023-07-04 14:15 | EX.ED.GUMALE ---
HPI History of Present Illness Chief Complaint: Complaint Informant: patient Narrative Narrative: Patient is a 68-year-old male with pretty significant past medical history including COPD, enlarged prostate, multiple prior abdominal surgeries most recently open hernia repair on 06/22 at [facility] presenting with difficulty urinating and associated discomfort. Patient states for the past few days has had worsening urinary retention. He states he was able to dribble some out but it became worse today when he is not able to urinate at all. States he started to have pain in his back (his kidneys) as well as his lower abdomen. Crandall catheter was placed by nursing staff prior to my evaluation he states he is feeling much better now. Denies any fever or chills. Denies any nausea or vomiting. States he continues a bowel movement and passed gas with his recent abdominal surgery. Has remotely seen a urologist in the system but had a complicated course and it sounds like he actually had a stent placed that was malpositioned and then cause a rupture of one of his kidneys requiring multiple abdominal surgeries and intra-abdominal infections. He would like to see a urologist in the [place] area. No other complaints at this time. [facility] Medical History Anxiety Colostomy in place COPD (chronic obstructive pulmonary disease) Hypertension Renal carcinoma Home Medications albuterol sulfate 2.5 mg/3 mL (0.083 %) solution for nebulization 2.5 mg inhalation Q6H PRN PRN Sob &/Or Wheezing 11/02/18 [History Last Taken 01/18/19] cholecalciferol (vitamin D3) 25 mcg (1,000 unit) tablet (Vitamin D3) 1,000 unit PO BID 11/02/18 [History Last Taken 01/18/19] fluticasone propionate 50 mcg/actuation nasal spray,suspension 1 spray DAILY 11/02/18 [History Last Taken 01/18/19] omeprazole 20 mg capsule,delayed release 20 mg PO DAILY 11/02/18 [History Last Taken 01/18/19] budesonide 0.5 mg/2 mL suspension for nebulization 0.5 mg inhalation DAILY 01/19/19 [History Last Taken 01/18/19] nicotine 21 mg/24 hr daily transdermal patch 21 mg TRANSDERM. DAILY #28 patches 01/23/19 [Rx Last Taken Unknown] buspirone 10 mg tablet 10 mg PO BID 12/26/22 [History Last Taken Unknown] doxazosin 4 mg tablet 4 mg PO DAILY 12/26/22 [History Last Taken Unknown] fluticasone fur. 100 mcg-umeclid 62.5 mcg-vilant 25 mcg inhalat.powder (Trelegy Ellipta) 1 inh inhalation DAILY 12/26/22 [History Last Taken Unknown] cephalexin 500 mg capsule 500 mg PO Q12 #10 CAPSULES 07/04/23 [Rx Last Taken Unknown] Allergy/AdvReac Type Severity Reaction Status Date / Time hydrocodone [From Vicodin] AdvReac Itching Verified 12/26/22 13:47 Surgical History H/O partial nephrectomy Social History Smoking Status: Current every day smoker tobacco type: cigarettes alcohol intake: current ROS ROS ED Constitutional Constitutional ED: Denies chills or fever(s) Cardiovascular Cardiovascular: Denies chest pain Respiratory/Chest Respiratory/Chest: Denies cough Gastrointestinal Gastrointestinal: Reports abdominal pain; Denies constipation, nausea or vomiting Genitourinary Genitourinary ED: Reports other Details: Difficulty urinating Musculoskeletal Musculoskeletal: Reports back pain Integumentary Denies rash Neurologic Neurologic: Denies paresthesias or weakness Hematologic/Lymphatic Hematologic/Lymphatic: Denies easy bleeding or easy bruising EXAM Physical Exam Const Vital Signs: 07/04/23 12:50 Temperature 97.4 F L Temperature Source Temporal Pulse Rate 89 Respiratory Rate 16 Blood Pressure 116/79 Blood Pressure Mean 91 Pulse Ox 99 Oxygen Delivery Method Room Air Positive well nourished and well developed General Appearance ED: well developed and NAD HEENT Reports moist mucous membranes Eyes PERRL Neck supple Resp normal respiratory effort and clear to auscultation bilaterally Cardio regular rate, regular rhythm and no murmurs GI non-tender and non-distended GI Narrative: Large midline surgical incision that is well approximated with Dermabond still in place. No associated drainage or erythematous changes. Abdomen mildly protuberant but nontender. Narrative: Crandall catheter in place. Neuro oriented x3 Sensorium / Orientation: alert Motor Exam: Negative for general weakness Psych mental status grossly normal Skin Lesions: no lesions Rashes: no rashes MDM MDM MDM Narrative Medical decision making narrative: Patient is evaluated for complaint of acute urinary retention. Crandall catheter was placed and patient is improvement of symptoms. Has been going on for couple days and he also has a history of renal surgery/renal cell carcinoma will obtain basic metabolic panel to ensure he has not developed an GISSELL. Is given a liter of fluid. Urinalysis will be sent as well to rule out associated urinary tract infection. Patient had a total of 600 cc of urine out. Will be discharged home with a Crandall catheter and given Crandall catheter care instructions. Is given referral for urology, Dr. Novak. Kidney function is normal with a creatinine of 0.81. Is given IV fluids. Urinalysis is concerning for possible urinary tract infection with positive nitrates, 0-5 white blood cells and 1+ bacteria. Urine culture sent to be started on a course of Keflex. Patient feels comfortable going home with a Crandall catheter also states he has visiting nurses at the house. He is afebrile with no systemic symptoms I do not think we need to add on a CBC or further work-up for this urinary tract infection. Is given return precautions. Discharged home in stable and improved condition. Lab Data Attestation: I reviewed the patient's lab results. Labs: Laboratory Results - last 24 hr 07/04/23 07/04/23 15:00 15:05 Sodium 139 Potassium 3.1 L Chloride 101 Carbon Dioxide 33.0 H Anion Gap 5 BUN 14 Creatinine 0.81 Estim Creat Clear Calc 83.87 Est GFR (MDRD) Af Amer 122 Est GFR (MDRD) Non-Af 101 BUN/Creatinine Ratio 17.2 Glucose 99 Calcium 9.1 Urine Color Yellow Urine Clarity Clear Urine pH 6.0 Ur Specific [place] 1.015 Urine Protein 15 H Urine Glucose (UA) Normal Urine Ketones Negative Urine Occult Blood 10 H Urine Nitrite Positive H Urine Bilirubin Negative Urine Urobilinogen 1 H Ur Leukocyte Esterase 25 H Urine RBC 0 SEEN Urine WBC 0-5 SEEN Ur Squamous Epith Cells 0 SEEN Urine Bacteria 1+ Urine Mucus 3+ Discharge Plan Triage Chief Complaint: Complaint ED Provider: Nolvia Chu Dx/Rx/DC Orders Clinical Impression: Acute UTI, Acute urinary retention Instructions: ED Crandall Catheter, Care, ED Urinary Retention, Male, ED Urinary Tract Infections in Men Prescriptions: New cephalexin 500 mg capsule 500 mg PO Q12 Qty: 10 0RF No Action buspirone 10 mg tablet 10 mg PO BID doxazosin 4 mg tablet 4 mg PO DAILY Trelegy Ellipta 100-62.5-25 mcg blister with device 1 inh inhalation DAILY albuterol sulfate 2.5 MG/3 ML solution for nebulization 2.5 mg inhalation Q6H PRN PRN (Reason: Sob &/Or Wheezing) omeprazole 20 MG capsule 20 mg PO DAILY fluticasone propionate 1 SPRAY spray,suspension 1 spray NASAL DAILY cholecalciferol (vitamin D3) [Vitamin D3] 1,000 UNIT tablet 1,000 unit PO BID budesonide 0.5 MG/2 ML suspension for nebulization 0.5 mg inhalation DAILY nicotine 21 MG patch 21 mg TRANSDERM. DAILY Qty: 28 0RF [facility]: Nico Novak MD [Med Staff - Active Staff] - 1 Week [facility] Chery [Primary Care Provider] - Disposition Disposition: Home, Self Care Discharge Date/Time: 07/04/23 17:04
[2023-07-04] MEDS: 0.9% Normal Saline (1000mL) 1,000 ML 999 ML IV (15:03)
[2023-07-04 15:10] LABS: Red Blood Cells-Urine 0 SEEN /hpf (0-5); Squamous Epithelial Cells - UA 0 SEEN /hpf (0-5)
[2023-07-04 15:14] LABS: Color, Urine Yellow (Yellow); Glucose, Dipstick Normal (Normal); Ketone-Dipstick Negative (Negative); Leukocyte Esterase-Dipstick 25 /ul (Negative); Nitrite-Dipstick Positive (Negative); Occult Blood-Urine 10 /ul (Negative); Protein-Dipstick 15 mg/dl (Negative); Specific Gravity, Urine 1.015 (1.002-1.030); Urine Bilirubin Dipstick Negative (Negative); Urine Clarity Clear (Clear); Urine Urobilinogen 1 mg/dl (Normal)
[2023-07-04 15:24] LABS: Anion Gap 5 (5-15); BUN 14 mg/dL (7-18); BUN/Creat Ratio 17.2 RATIO (10-20); Calcium,Total 9.1 mg/dL (8.5-10.1); Chloride 101 mmol/L (98-107); Creatinine, Serum 0.81 mg/dL (0.70-1.30); EST Glomerular Filtration Rate 101 mL/min (>60); Est Glom Filt Rate - Afr Amer 122 mL/min (>60); Estimated Creatinine Clearance 83.87 ml/min; Glucose 99 mg/dL (74-106); Potassium 3.1 mmol/L (3.5-5.1); Sodium Level 139 mmol/L (136-145)
[2023-07-04 15:30] LABS: Bacteria 1+ /hpf (None Seen); Mucous, Urine 3+ /hpf (<or=2+); White Blood Cells 0-5 SEEN /hpf (0-5)
[2023-07-04] MEDS: Cephalexin 250 MG Capsule 500 MG PO (16:55)
== END 2023-07-04 17:04 | disposition home or self-care (01) ==
PROVIDERS: Emergency Provider Emergency Medicine; Visit Provider Emergency Medicine
DX: N39.0 Urinary tract infection, site not specified (principal); Z93.3 Colostomy status; J44.9 Chronic obstructive pulmonary disease, unspecified; F17.210 Nicotine dependence, cigarettes, uncomplicated; R33.9 Retention of urine, unspecified; I10 Essential (primary) hypertension; Z79.899 Other long term (current) drug therapy; Z79.51 Long term (current) use of inhaled steroids; Z85.53 Personal history of malignant neoplasm of renal pelvis
CPT/HCPCS: 51702; 80048; 81001; 87077; 87086; 87088; 87186; 96360; 99283; J7030

== ENCOUNTER → 2024-04-10 | Outpatient (CLI) | payer MEDICARE, MEDICAID, SELFPAY ==
[2024-04-10 17:20] LABS: Absolute Lymphocyte Count 3.18 X10^3/uL (0.83-4.51); Absolute Neutrophil Count 12.1 X10^3/uL (2.0-7.7); Basophil# 0.08 X10^3/uL; Basophil% 0.5 % (0-1); Eosinophil# 0.12 X10^3/uL; Eosinophils% 0.7 % (0-5); Hematocrit 39.7 % (40-54); Lymphocyte # 3.18 X10^3/ul (0.83-4.51); Lymphocyte % 19.1 % (19-41); Mean Corp Hgb Conc 32.7 g/dL (32-36); Mean Corpuscular Hgb 30.7 pg (27.0-32.0); Mean Corpuscular Volume 93.6 fL (80-94); Mean Platelet Vol. 9.3 fl (6.2-12.0); Monocyte# 1.13 X10^3/uL; Monocyte% 6.8 % (0-10); NRBC Flagged by Analyzer 0 % (0-5); Neutrophil # 12.06 X10^3/uL (2.7-7.7); Neutrophil % 72.5 % (47-70); Platelet Count 258 K/mm3 (150-450); RBC Distribution Width CV 13.1 % (11.6-14.6); RBC Distribution Width SD 45.1 fl (35.1-43.9); Red Blood Count 4.24 M/mm3 (4.6-6.2); White Blood Count 16.6 K/mm3 (4.4-11.0)
[2024-04-10 17:53] LABS: ALB/GLOB Ratio 0.9 RATIO (0.9-2.4); AST(SGOT) 13 U/L (15-37); Alanine Aminotransfer ALT/SGPT 20 U/L (16-61); Albumin, Serum 3.5 g/dL (3.2-5.0); Alkaline Phosphatase 60 U/L (45-117); Anion Gap 7 (5-15); BUN 15 mg/dL (7-18); BUN/Creat Ratio 12.9 RATIO (10-20); Calcium,Total 9.7 mg/dL (8.5-10.1); Chloride 98 mmol/L (98-107); Cholesterol 132 mg/dL (200); Creatinine, Serum 1.16 mg/dL (0.70-1.30); EST Glomerular Filtration Rate 67 mL/min (>60); Est Glom Filt Rate - Afr Amer 81 mL/min (>60); Globulin 3.8 g/dL (2.2-4.2); Glucose 88 mg/dL (74-106); High Density Lipoprotein 39 mg/dL; Potassium 3.6 mmol/L (3.5-5.1); Protein, Total 7.3 g/dL (6.4-8.2); Sodium Level 134 mmol/L (136-145); Thyroid Stim Hormone (TSH) 0.928 uIU/mL (0.358-3.740); Triglycerides 146 mg/dL; Very Low Density Lipoprotein 29 mg/dL (5-40)
== END | disposition home or self-care (01) ==
LOC: VSLAB 15:56
PROVIDERS: PCP Nurse Practitioner Family; Visit Provider Nurse Practitioner Family
DX: I10 Essential (primary) hypertension (principal); E78.5 Hyperlipidemia, unspecified
CPT/HCPCS: 36415; 80053; 80061; 84443; 85025

== ENCOUNTER → 2024-07-30 | Outpatient (CLI) | payer MEDICARE, SELFPAY ==
--- NOTE | 2024-07-30 14:48 | ART_ITS ---
Reason For Study: S/P EVAR Procedure A bilateral lower extremity continuous wave Doppler with analog waveform analysis and ankle brachial indexes. Left Segmental Pressures Left brachial= 122mmHg. Left posterior tibial artery = 129mmHg. Left dorsalis pedis artery = 131mmHg. Left digit = 103 mmHg. The left dorsalis pedis waveforms are triphasic. The left posterior tibial artery waveforms are triphasic. Right Segmental Pressures Right brachial= 111mmHg. Right posterior tibial artery = 132mmHg. Right dorsalis pedis artery = 136mmHg. Right digit = 105 mmHg. The right dorsalis pedis waveforms are triphasic. The right posterior tibial artery waveforms are triphasic. Indices The right ankle brachial index by the dorsalis pedis is 1.11. The right ankle brachial index by the posterior tibial artery is 1.08. The right digital-brachial index is 0.86. The left ankle brachial index by the dorsalis pedis is 1.07. The left ankle brachial index by the posterior tibial artery is 1.06. The left digital-brachial index is 0.84. VL/Ankle Brachial Index Interpretation Summary Right MARTÍN 1.11, normal. TBI and Doppler/PVR waveforms of the right ankle normal at rest. Left MARTÍN 1.07, normal. TBI and Doppler/PVR waveforms of the left ankle normal a t rest Ordering Physician: Juliet Summers Referring Physician: Sasha Jacques Performed By: Isabelle Concepcion RVT
== END | disposition home or self-care (01) ==
PROVIDERS: PCP Nurse Practitioner Family; Referring Provider Physician Assistant; Visit Provider Physician Assistant
DX: Z48.812 Encounter for surgical aftercare following surgery on the circulatory system (principal)
CPT/HCPCS: 93922

== ENCOUNTER → 2024-08-11 | Outpatient (CLI) | payer MEDICARE, SELFPAY ==
--- NOTE | 2024-08-11 15:02 | CT_ITS ---
EXAM: CT ANGIOGRAPHY ABDOMEN AND PELVIS WITHOUT AND WITH INTRAVENOUS CONTRAST CLINICAL INDICATION: s/p EVAR -- Arterial, delayed, and without contrast TECHNIQUE: Helically acquired angiography images were obtained of the abdomen and pelvis without and with intravenous contrast. This CT exam was performed using one or more of the following dose reduction techniques: automated exposure control, adjustment of the mA and/or kV according to patient size, and/or use of iterative reconstruction technique. MIP reconstructed images were created and reviewed. CONTRAST: IV 100mL [id number] RADIATION DOSE: CTDIvol = 20.22 mGy, DLP = 4094.29 mGy-cm COMPARISON: CT abdomen pelvis from 02/11/2022 FINDINGS: VASCULATURE: AORTA: Infrarenal abdominal aortic aneurysm status post aortoiliac endograft repair. [place] aneurysm sac measures 3.9 cm, decreased from 5.4 cm on the preoperative comparison exam. No evidence of endoleak or other complication. No dissection. CELIAC TRUNK AND MESENTERIC ARTERIES: No acute findings. No occlusion or significant stenosis. No dissection. RENAL ARTERIES: No acute findings. No occlusion or significant stenosis. No dissection. ILIAC ARTERIES: No acute findings. No occlusion or significant stenosis. No dissection. LOWER THORAX: Unremarkable. Lung bases are clear. No cardiomegaly. No significant pericardial effusion. ABDOMEN: LIVER: Unremarkable. Homogeneous. No focal mass. GALLBLADDER AND BILE DUCTS: Tiny gallstone. No gallbladder distention or wall edema. No intra- or extrahepatic biliary ductal dilation. PANCREAS: Unremarkable. No focal cystic or solid mass. SPLEEN: Unremarkable. Normal size without focal cystic or solid mass. ADRENALS: Unremarkable. No nodules. KIDNEYS AND URETERS: Unremarkable. Normal renal size and position. No hydronephrosis. STOMACH AND BOWEL: Prior surgical anastomosis in the sigmoid colon. Diverticular disease of the colon but no diverticulitis. No stomach or bowel distention. PELVIS: APPENDIX: The appendix is normal. BLADDER: Unremarkable. REPRODUCTIVE: Prominent prostate gland. ABDOMEN and PELVIS: INTRAPERITONEAL SPACE: Unremarkable. No ascites or other fluid collection. No free air. BONES/JOINTS: Degenerative changes of the spine. No suspicious lytic or blastic abnormality. SOFT TISSUES: Unremarkable. No discrete abdominal or pelvic wall hernia. LYMPH NODES: Unremarkable. No enlarged lymph nodes. CT/CTA Abd/Pelvis W/WO Contrast IMPRESSION: 1. Infrarenal abdominal aortic aneurysm status post aortoiliac endograft repair. [place] aneurysm sac measures 3.9 cm, decreased from 5.4 cm on the preoperative comparison exam. No evidence of endoleak or other complication. 2. Tiny gallstone. 3. No acute findings in the abdomen/pelvis. Electronically Signed: Raúl Bueno MD at 23:15 EST ,
[2024-08-11 15:43] LABS: CREATININE FINGERSTICK 1.1 mg/dL (0.70-1.30); EGFR FINGERSTICK > 60.0000 mL/min (>60)
== END | disposition home or self-care (01) ==
LOC: CT 15:00
PROVIDERS: PCP Nurse Practitioner Family; Referring Provider Physician Assistant; Visit Provider Physician Assistant
DX: Z48.812 Encounter for surgical aftercare following surgery on the circulatory system (principal); I71.40 Abdominal aortic aneurysm, without rupture, unspecified; Z98.890 Other specified postprocedural states; Z86.79 Personal history of other diseases of the circulatory system
CPT/HCPCS: 74174; Q9967

== ENCOUNTER → 2024-09-03 | Outpatient (CLI) | payer MEDICARE, SELFPAY ==
[2024-09-03 17:17] LABS: Hematocrit 42.7 % (40-54); Hemoglobin 13.6 g/dL (13.0-16.5); Mean Corp Hgb Conc 31.9 g/dL (32-36); Mean Corpuscular Hgb 30.4 pg (27.0-32.0); Mean Corpuscular Volume 95.5 fL (80-94); Mean Platelet Vol. 9.8 fl (6.2-12.0); Platelet Count 219 K/mm3 (150-450); RBC Distribution Width CV 13.1 % (11.6-14.6); Red Blood Count 4.47 M/mm3 (4.6-6.2); White Blood Count 9.7 K/mm3 (4.4-11.0)
[2024-09-03 17:42] LABS: AST(SGOT) 15 U/L (15-37); Alanine Aminotransfer ALT/SGPT 24 U/L (16-61); Albumin, Serum 3.7 g/dL (3.2-5.0); Alkaline Phosphatase 70 U/L (45-117); Anion Gap 4 (5-15); BUN 13 mg/dL (7-18); BUN/Creat Ratio 11.6 RATIO (10-20); Calcium,Total 9.5 mg/dL (8.5-10.1); Chloride 105 mmol/L (98-107); Cholesterol 132 mg/dL (200); Creatinine, Serum 1.12 mg/dL (0.70-1.30); EST Glomerular Filtration Rate 69 mL/min (>60); Est Glom Filt Rate - Afr Amer 84 mL/min (>60); Globulin 3.7 g/dL (2.2-4.2); Glucose 77 mg/dL (74-106); High Density Lipoprotein 42 mg/dL; Protein, Total 7.4 g/dL (6.4-8.2); Sodium Level 136 mmol/L (136-145); Thyroid Stim Hormone (TSH) 0.449 uIU/mL (0.358-3.740); Triglycerides 172 mg/dL; Very Low Density Lipoprotein 34 mg/dL (5-40)
== END | disposition home or self-care (01) ==
LOC: VSLAB 16:29
PROVIDERS: PCP Nurse Practitioner Family; Visit Provider Nurse Practitioner Family
DX: I10 Essential (primary) hypertension (principal); E78.5 Hyperlipidemia, unspecified
CPT/HCPCS: 36415; 80053; 80061; 84443; 85027

== ENCOUNTER → 2024-12-17 | Outpatient (CLI) | payer MEDICARE, SELFPAY ==
--- NOTE | 2024-12-17 12:51 | STRESSREP ---
Stress Test Report Pharmacologic myocardial perfusion stress test. 69-year-old man with a history of dyspnea Resting EKG demonstrates normal sinus rhythm with a rate of 69 bpm. Resting blood pressure is 158/100 mmHg. 0.4 mg of regadenoson was infused per usual protocol followed by rapid intravenous saline flush injection. Continuous EKG monitoring was performed. The maximum heart rate was 90 bpm which was 58% of max impacted heart rate the maximum workload was 1 metabolic equivalent. At rest there were no ST or T wave changes noted to suggest ischemia and at peak infusion nonspecific ST changes were noted which did not meet the criteria for ischemia. No clinical angina is noted. The final blood pressure was 130/92 mmHg. Myocardial perfusion protocol. 14.6 mCi of technetium 99m sestamibi was injected at rest. 0.4 mg of regadenoson was infused per usual protocol. At peak infusion 43.9 mCi of technetium 99m sestamibi was injected stress images were obtained stress and rest images were reconstructed and compared in the short axis vertical long and horizontal long axis. Gated images were also obtained. Perfusion SPECT analysis: Review of the stress images demonstrate normal uptake of tracer noted in all areas of the myocardium. The resting images similar demonstrated normal uptake of tracer noted in all areas of the myocardium. No areas of reversibility are noted to suggest ischemia and no previous infarct is noted. Gated SPECT analysis: The gated ejection fraction is 66%. Conclusion: Normal pharmacologic myocardial perfusion stress test. Preserved ejection fraction.
== END | disposition home or self-care (01) ==
LOC: CVS 06:48
PROVIDERS: PCP Nurse Practitioner Family; Referring Provider Nurse Practitioner Family; Visit Provider Nurse Practitioner Family
DX: R06.09 Other forms of dyspnea (principal); I10 Essential (primary) hypertension; F17.290 Nicotine dependence, other tobacco product, uncomplicated
CPT/HCPCS: 78452; 93017; A9500; A4216; J2785

== ENCOUNTER 2024-12-27 16:49 | Emergency (ER) | payer MEDICARE, SELFPAY ==
[2024-12-27] VITALS (7 sets, daily range): BP systolic 140–147; BP diastolic 85–106; PULSE 75–98; RESP 16–28; TEMP 36.1–36.6; O2SAT 93–100; BMI 31.6
--- NOTE | 2024-12-27 17:00 | EKG12_ITS ---
Test Reason : CP/SOB Blood Pressure : */* mmHG Vent. Rate : 97 BPM Atrial Rate : 97 BPM P-R Int : 144 ms QRS Dur : 78 ms QT Int : 326 ms P-R-T Axes : 53 -78 71 degrees QTcB Int : 414 ms Normal sinus rhythm Possible Left atrial enlargement Left axis deviation Nonspecific ST abnormality Abnormal ECG Confirmed by Juan Daniel Palafox ([id number]), film editor SAVANA MORILLO ([id number]) on 12/29/2024 9:15:14 AM Referred By: Confirmed By: Juan Daniel Palafox
--- NOTE | 2024-12-27 17:03 | EDS_ITS ---
HPI <HOWARD Davis - Last Filed: 12/27/24 19:13> History of Present Illness Chief Complaint: Shortness of Breath Narrative Narrative: 69-year-old male with PMH of HTN, COPD, tobacco use presents with chest pain and shortness of breath. He states over a week ago he was prescribed an antibiotic and steroids for a sinus infection. He feels like the congestion moved to his chest a few days ago and he has had a significant cough and wheezing. He uses his nebulizer 3 times daily and has finished the 1-week duration of antibiotic. Over the last 2 days he developed left-sided chest pain. He thought it felt sore this morning but it seems to be getting worse throughout the day. It is not exertional or pleuritic. He has no fever chills nausea or vomiting or abdominal pain. No diarrhea or bloody stool. No urinary symptoms. He used to smoke 2 PPD and is slowly cut back to about 7 cigarettes a day over the last week. [facility] <HOWARD Davis - Last Filed: 12/27/24 19:13> [facility] Medical History (Updated 12/27/24 @ 19:13 by HOWARD Davis) Benign prostatic hyperplasia without lower urinary tract symptoms Hyperlipidemia Colostomy in place Renal carcinoma Anxiety COPD (chronic obstructive pulmonary disease) Hypertension Home Medications ?Medication ?Instructions ?Recorded ?Last Taken ?Type albuterol sulfate 2.5 mg/3 mL 2.5 mg inhalation Q6H DE N PRN Sob 11/02/18 12/27/24 History (0.083 %) solution for nebulization &/Or Wheezing fluticasone propionate 50 1 spray DAILY 11/02/1812/27 History mcg/actuation nasal spray,suspension fluticasone fur. 100 mcg-umeclid 1 inh inhalation CORDELL Y 12/26/22 12/27/24 History 62.5 mcg-vilant 25 mcg inhalat.powder (Trelegy Ellipta) albuterol sulfate 90 mcg/actuation 2 puff inhalation Q 4H PRN 04/29/24 12/27/24 History aerosol inhaler shortness of breath or wheez ing loratadine 10 mg tablet (Allergy 10 mg PO QDAY 4 12/27/24 History Relief (loratadine)) montelukast 10 mg tablet 10 mg PO QDAY 04/29/2412/27 History acetaminophen 500 mg tablet 1,000 mg PO BID 04/30/24 U nknown History bupropion HCl 150 mg 24 hr tablet, mg PO 07/11/24 Unkn own History extended release buspirone 10 mg tablet 10 mg PO BID 12/27/24 History doxazosin 8 mg tablet 8 mg PO QHS 12/27/24 5 History prednisone 10 mg tablet mg PO 12/27/24 12/27/24 Hist ory Allergy/AdvReac Type Severity Reaction Status Date / Time hydrocodone (From Vicodin) AdvReac Itching Verified 12/27/24 16:50 Family History Father Aneurysm Surgical History (Updated 12/27/24 @ 17:01 by Danielle Barrett) History of colostomy reversal Status post endovascular aneurysm repair (EVAR) H/O partial nephrectomy Social History household members: spouse Smoking Status: Current every day smoker tobacco type: cigarettes alcohol intake: current substance use type: marijuana ROS <HOWARD Davis - Last Filed: 12/27/24 19:13> ROS ED ROS Narrative Constitutional: Negative for fever, chills, malaise. CVS: Negative for positive for chest pain. No syncope Respiratory: Positive for shortness of breath, cough. GI: Negative for abdominal pain, nausea, vomiting, diarrhea. EXAM <HOWARD Davis - Last Filed: 12/27/24 19:13> Physical Exam Narrative Exam Narrative: CONST: Patient sitting in no acute distress. EYES: Normal inspection. NECK: Normal inspection. RESP: Prolonged expiratory phase with wheezing throughout all lung mejia. CVS: Regular rate and rhythm, no murmur, no gallop. SKIN: Color normal, no rash, warm, dry, intact. EXTREMITIES: Normal appearance, no pedal edema. NEURO: Alert and answering questions appropriately. PSYCH: Normal affect. Const Vital Signs: 12/27/24 16:50 12/27/24 17:02 12/27/24 17:10 Temperature 96.9 F L Temperature Source Temporal Pulse Rate 98 91 Respiratory Rate 28 H 17 Respiratory Effort Normal Non-Labored Respiratory Depth Normal Respiratory Pattern Normal Normal Blood Pressure 140/99 H Blood Pressure Mean 112 Pulse Ox 98 Oxygen Delivery Method Room Air 12/27/24 17:13 12/27/24 17:53 12/27/24 18:12 Temperature 97.9 F Temperature Source Oral Pulse Rate 79 75 Respiratory Rate 24 H 17 Respiratory Effort Respiratory Depth Respiratory Pattern Normal Blood Pressure 147/85 H Blood Pressure Mean 105 Pulse Ox 93 Oxygen Delivery Method Room Air Room Air 12/27/24 19:00 Temperature 98 F Temperature Source Pulse Rate 78 Respiratory Rate 16 Respiratory Effort Respiratory Depth Respiratory Pattern Blood Pressure 141/106 H Blood Pressure Mean 117 Pulse Ox 100 Oxygen Delivery Method <Dr. Porfirio Manzo DO - Last Filed: 12/28/24 00:13> Physical Exam Const Vital Signs: 12/27/24 16:50 12/27/24 17:02 12/27/24 17:10 Temperature 96.9 F L Temperature Source Temporal Pulse Rate 98 91 Respiratory Rate 28 H 17 Respiratory Effort Normal Non-Labored Respiratory Depth Normal Respiratory Pattern Normal Normal Blood Pressure 140/99 H Blood Pressure Mean 112 Pulse Ox 98 Oxygen Delivery Method Room Air 12/27/24 17:13 12/27/24 17:53 12/27/24 18:12 Temperature 97.9 F Temperature Source Oral Pulse Rate 79 75 Respiratory Rate 24 H 17 Respiratory Effort Respiratory Depth Respiratory Pattern Normal Blood Pressure 147/85 H Blood Pressure Mean 105 Pulse Ox 93 Oxygen Delivery Method Room Air Room Air 12/27/24 19:00 Temperature 98 F Temperature Source Pulse Rate 78 Respiratory Rate 16 Respiratory Effort Respiratory Depth Respiratory Pattern Blood Pressure 141/106 H Blood Pressure Mean 117 Pulse Ox 100 Oxygen Delivery Method MDM <HOWARD Davis - Last Filed: 12/27/24 19:13> [facility] MDM Narrative Medical decision making narrative: History gathered from: Patient and spouse Differential includes but not limited to COPD exacerbation, pneumonia, ACS 69-year-old male with COPD and tobacco use presents with chest congestion and worsening dyspnea, wheezing, and left-sided chest pain x 2 days. He just finished antibiotics for a sinus infection and is still on a steroid taper. He appears well and nontoxic. BP 140/99, HR 98, RR 28, 98% on room air. Lung sounds are significantly prolonged with tight expiratory wheezing so I ordered a DuoNeb and blood work. Labs show WBC of 20.9 which is likely elevated from recent steroids. Electrolytes are unremarkable. Renal function slightly elevated at 27/1.32 so he was given IV fluids. EKG is nonischemic and troponin is 9. Since he has had continuous left-sided chest pain for 2 days he does not require serial enzymes. CXR negative. After DuoNebs x 2 and IV Solu-Medrol x 1 he feels better and ambulatory pulse ox is 93 to 95%. I discussed treatment of COPD exacerbation?he has an inhaler and will finish his steroids which he believes has 3 days left. Instructed him to follow-up with his PCP. Return precautions discussed and he was discharged in stable condition. History & Record Review Additional record(s) reviewed:: Prior ED visit and Prior labs Lab Data Attestation: I reviewed the patient's lab results. Labs: Laboratory Results - last 24 hr 12/27/24 17:05 WBC 20.9 H RBC 4.67 Hgb 14.6 Hct 44.7 MCV 95.7 H MCH 31.3 MCHC 32.7 RDW Std Deviation 48.7 H RDW Coeff of Xochilt 13.8 Plt Count 266 MPV 9.4 Immature Gran % (Auto) 0.800 Neut % (Auto) 81.3 H Lymph % (Auto) 11.2 L [place] % (Auto) 6.2 Eos % (Auto) 0.1 Baso % (Auto) 0.4 Absolute Neuts (auto) 17.0 H Absolute Lymphs (auto) 2.34 Nucleated RBC % 0 Sodium 139 Potassium 4.8 Chloride 102 Carbon Dioxide 25.7 Anion Gap 11 BUN 27 H Creatinine 1.32 H Estim Creat Clear Calc 58.61 Est GFR (MDRD) Non-Af 59 L BUN/Creatinine Ratio 20.1 H Glucose 100 H Calcium 9.6 Troponin T High Sens 9 Radiography Diagnostic Testing: Clinical Impression(s) from Imaging Studies Chest X-Ray 12/27/24 17:40 IMPRESSION: NO ACUTE FINDINGS. Reading Location: [facility] ED attending interpretation 2 view chest x-ray shows normal heart size, no acute infiltrate. EKG Initial EKG: Attestation: I personally reviewed and interpreted this EKG as follows: Interpretation: Sinus Rhythm and No Acute Injury Pattern Comments: NSR 97 bpm LAD, nonspecific ST changes Prior EKG tracings: available for review Prior: Unchanged <Dr. Porfirio Manzo, DO - Last Filed: 12/28/24 00:13> [facility] Lab Data Labs: Laboratory Results - last 24 hr 12/27/24 17:05 WBC 20.9 H RBC 4.67 Hgb 14.6 Hct 44.7 MCV 95.7 H MCH 31.3 MCHC 32.7 RDW Std Deviation 48.7 H RDW Coeff of Xochilt 13.8 Plt Count 266 MPV 9.4 Immature Gran % (Auto) 0.800 Neut % (Auto) 81.3 H Lymph % (Auto) 11.2 L [place] % (Auto) 6.2 Eos % (Auto) 0.1 Baso % (Auto) 0.4 Absolute Neuts (auto) 17.0 H Absolute Lymphs (auto) 2.34 Nucleated RBC % 0 Sodium 139 Potassium 4.8 Chloride 102 Carbon Dioxide 25.7 Anion Gap 11 BUN 27 H Creatinine 1.32 H Estim Creat Clear Calc 58.61 Est GFR (MDRD) Non-Af 59 L BUN/Creatinine Ratio 20.1 H Glucose 100 H Calcium 9.6 Troponin T High Sens 9 Radiography Diagnostic Testing: Clinical Impression(s) from Imaging Studies Chest X-Ray 12/27/24 17:40 IMPRESSION: NO ACUTE FINDINGS. Reading [facility] and Re-Evaluation :: Attending note: I have personally performed a face to face assessment of the patient and have reviewed the MARTY note. I personally made/approved the management plan and take responsibility for the patient management. I performed a substantive portion of the visit including all aspects of the following. My swift findings include: COPD history tobacco history. Worsening left-sided chest pain dyspnea wheezing cough for the last 2 days. No fevers. States she just finished antibiotics for treatment of sinus infection through his PCP. He cannot tell me when he saw his PCP office. He has 3 more days of steroids. No coronary disease history. States has an abdominal aneurysm stent. Denies double pain. On exam expiratory wheezing noted bilaterally. No distress. Heart was regular. EKG: Sinus rhythm 97, no ST Changes, isolated T wave inversion in aVL. No nspecific. White count 20 however been on steroid taper. Two-view chest x-ray interpreted myself negative for any acute process. Troponin 9 negative. 2 days persistent symptoms make troponin less likely cardiac in nature. Clinically was feeling better. He was ambulated pulse ox was stable. He will finish his steroid and he has inhaler at home. Follow-up with his doctor. Discharge Plan Triage Chief Complaint: Shortness of Breath ED Midlevel Provider: Jovanna Valle ED Provider: Porfirio Manzo Dx/Rx/DC Orders Clinical Impression: COPD exacerbation, Chest pain Instructions: Asthma and COPD Prescriptions: No Action Trelegy Ellipta 100-62.5-25 mcg blister with device 1 inh inhalation DAILY acetaminophen 500 mg tablet 1,000 mg PO BID albuterol sulfate 90 mcg/actuation HFA aerosol inhaler 2 puff inhalation Q4H PRN (Reason: shortness of breath or wheezing) loratadine [Allergy Relief (loratadine)] 10 mg tablet 10 mg PO QDAY montelukast 10 mg tablet 10 mg PO QDAY albuterol sulfate 2.5 MG/3 ML solution for nebulization 2.5 mg inhalation Q6H PRN PRN (Reason: Sob &/Or Wheezing) fluticasone propionate 1 SPRAY spray,suspension 1 spray NASAL DAILY prednisone 10 mg tablet PO Patient Comments: PT STATES HAS TWO MORE DAYS OF ONE TABLET REMAINING ON TAPER DOSE doxazosin 8 mg tablet 8 mg PO QHS buspirone 10 mg tablet 10 mg PO BID Primary Care Provider: Sasha Jacques Referrals: Sasha Jacques, MANAGER [employer]SF[employer] [Primary Care Provider] - Activity Restrictions/Additional Instructions: Other than a high white blood cell count your blood work is normal. No signs of heart attack. No pneumonia. I recommend you finish the steroid you have at home, continue using your inhaler, and call your PCP office on Sunday. If symptoms worsen or you develop significantly worsening shortness of breath come back to the ER. Print Language: Czech Disposition Disposition: Home, Self Care Discharge Date/Time: 12/27/24 19:07
[2024-12-27] MEDS: Ipratropium/Albuterol Sulfate 3 ML AMPUL.NEB INHALATION ×2 (17:10→18:12)
[2024-12-27] MEDS: Aspirin 81 MG TAB.CHEW 324 MG PO (17:10)
[2024-12-27 17:11] LABS: Absolute Lymphocyte Count 2.34 X10^3/uL (0.83-4.51); Basophil# 0.09 X10^3/uL; Basophil% 0.4 % (0-1); Eosinophil# 0.03 X10^3/uL; Eosinophils% 0.1 % (0-5); Hematocrit 44.7 % (40-54); Hemoglobin 14.6 g/dL (13.0-16.5); Lymphocyte # 2.34 X10^3/ul (0.83-4.51); Lymphocyte % 11.2 % (19-41); Mean Corp Hgb Conc 32.7 g/dL (32-36); Mean Corpuscular Hgb 31.3 pg (27.0-32.0); Mean Corpuscular Volume 95.7 fL (80-94); Mean Platelet Vol. 9.4 fl (6.2-12.0); Monocyte% 6.2 % (0-10); NRBC Flagged by Analyzer 0 % (0-5); Neutrophil # 16.97 X10^3/uL (2.7-7.7); Neutrophil % 81.3 % (47-70); Platelet Count 266 K/mm3 (150-450); RBC Distribution Width CV 13.8 % (11.6-14.6); RBC Distribution Width SD 48.7 fl (35.1-43.9); Red Blood Count 4.67 M/mm3 (4.6-6.2); White Blood Count 20.9 K/mm3 (4.4-11.0)
[2024-12-27] MEDS: MethylPREDNISolone 125 MG/2 ML Vial IV (17:11)
[2024-12-27 17:30] LABS: Anion Gap 11 (5-15); BUN 27 mg/dL (4-19); BUN/Creat Ratio 20.1 RATIO (10-20); Calcium,Total 9.6 mg/dL (7.6-11.0); Carbon Dioxide 25.7 mmol/L (21.0-32.0); Chloride 102 mmol/L (98-108); Creatinine, Serum 1.32 mg/dL (0.70-1.20); EST Glomerular Filtration Rate 59 (>60); Estimated Creatinine Clearance 58.61 ml/min (50-250); Glucose 100 mg/dL (70-99); Potassium 4.8 mmol/L (3.3-5.1); Sodium Level 139 mmol/L (133-145); Troponin T High Sensitivity 9 ng/L (<=22)
[2024-12-27] MEDS: 0.9% Normal Saline (1000mL) 1,000 ML 999 ML IV (17:38)
--- NOTE | 2024-12-27 17:40 | RAD_ITS ---
PROCEDURE: CHEST PA AND LATERAL 12/27/2024 REASON FOR EXAM: CHEST PAIN TECHNIQUE: Frontal and lateral views of the chest. COMPARISON: CT chest 04/04/2021 FINDINGS: Hardware: None Heart: The heart size is normal. Mediastinum: The mediastinal contour is unremarkable. Lungs: Mild bibasilar atelectasis. No focal consolidation. No pneumothorax. No pleural effusion. Bones: Degenerative changes are identified within the thoracic spine. RAD/Chest PA and Lateral IMPRESSION: NO ACUTE FINDINGS. Reading [facility]
== END 2024-12-27 19:07 | disposition home or self-care (01) ==
PROVIDERS: Physician Assistant; Emergency Provider Emergency Medicine; PCP Nurse Practitioner Family; Visit Provider Emergency Medicine
DX: J44.1 Chronic obstructive pulmonary disease with (acute) exacerbation (principal); Z93.3 Colostomy status; E78.5 Hyperlipidemia, unspecified; F17.210 Nicotine dependence, cigarettes, uncomplicated; I10 Essential (primary) hypertension; R07.9 Chest pain, unspecified; R06.02 Shortness of breath; Z85.53 Personal history of malignant neoplasm of renal pelvis; Z79.51 Long term (current) use of inhaled steroids; Z79.899 Other long term (current) drug therapy; F41.9 Anxiety disorder, unspecified; Z90.5 Acquired absence of kidney
CPT/HCPCS: 71046; 80048; 84484; 85025; 93005; 94640; 96361; 96374; 99284; A4216

== ENCOUNTER 2025-01-21 15:50 | Outpatient (CLI) | payer MEDICARE, SELFPAY ==
--- NOTE | 2025-01-21 15:52 | CT_ITS ---
PROCEDURE: LOW DOSE CT LUNG SCREENING 01/21/2025 REASON FOR EXAM: NICOTINE DEPENDENCE TECHNIQUE: Low Dose CT Lung screening without contrast. Coronal and Sagittal reconstruction series were provided. One or more dose reduction techniques were used (e.g., Automated exposure control, adjustment of the mA and/or kV according to patient size, use of iterative reconstruction technique). REFERENCE LINK: [facility] Lung-RADS RADIATION DOSE SUMMARY: CTDlvol: 4.02 mGy DLP: 138.43 mGycm COMPARISON: Low-dose lung screen, 04/28/2021 FINDINGS: PULMONARY NODULES: (Only nodules >3mm are reported) Lymph Nodes:There is no significant mediastinal or hilar lymphadenopathy. Heart and Vasculature:The heart size is normal. There is a loculated pericardial effusion anteriorly. There is calcific vascular disease of the thoracic aorta and coronary arteries. There is tortuosity of the descending thoracic aorta. Lungs and Airways: There is stable pleural-parenchymal scarring in both lung apices. There are benign calcified granulomas in the right lung apex. There are stable pulmonary blebs in the upper lobe of the left lung. There is linear scarring in the basilar segments of both lower lobes. There is an area of pleural-based consolidation in the inferior lingular segment of the upper lobe of the left lung, not present previously. Pleura:There are no pleural effusions. Upper Abdomen:There is calcific vascular disease of the visualized abdominal aorta. Chest wall:The soft tissues of the chest wall appear unremarkable. There is no axillary lymphadenopathy. There are findings of DISH throughout the thoracic spine. CT/Low Dose CT Lung Screening IMPRESSION: 1. No significant pulmonary nodules or masses. 2. Area of pleural-based consolidation in the inferior segment of the lingula, not present previously. 3. Calcific vascular disease of the thoracoabdominal aorta and coronary arteri es. 4. Other findings as noted. Lung rads: Category 3 S: Probably benign. Calcific vascular disease. Recommendation: Follow-up low-dose chest CT in 6 months. Reading Location: [id number]
== END 2025-01-21 23:59 | disposition home or self-care (01) ==
LOC: CT 15:51
PROVIDERS: PCP Nurse Practitioner Family; Referring Provider Nurse Practitioner Family; Visit Provider Nurse Practitioner Family
DX: F17.210 Nicotine dependence, cigarettes, uncomplicated (principal)
CPT/HCPCS: 71271

== ENCOUNTER → 2025-05-07 | Outpatient (CLI) | payer MEDICARE, SELFPAY ==
--- NOTE | 2025-05-07 15:30 | RAD_ITS ---
PROCEDURE: CHEST PA AND LATERAL 05/07/2025 REASON FOR EXAM: CHRONIC BRONCHITIS TECHNIQUE: Procedure Code: RADCXR Modality: DX Procedure: CHEST PA AND LATERAL COMPARISON: Available priors FINDINGS: Tortuous aorta. Normal-sized heart. Chronic interstitial lung changes in the lower lobes bilaterally [id number]. No superimposed focal consolidation. Lucency in the left lung apices likely reflects overall emphysematous changes. Increased AP dimension of the lung confirms chronic obstructive pulmonary disease. Multilevel degenerative changes present through the spine RAD/Chest PA and Lateral IMPRESSION: Chronic interstitial lung changes likely related to chronic obstructive pulmona ry disease. No acute cardiopulmonary process or significant interval change. Reading Location: [facility]
== END | disposition home or self-care (01) ==
LOC: RAD 15:28
PROVIDERS: PCP Nurse Practitioner Family; Referring Provider Nurse Practitioner Family; Visit Provider Nurse Practitioner Family
DX: J42 Unspecified chronic bronchitis (principal)
CPT/HCPCS: 71046

== ENCOUNTER → 2025-07-20 | Outpatient (CLI) | payer MEDICARE, SELFPAY ==
--- NOTE | 2025-07-20 07:50 | ART_ITS ---
Reason For Study Reason For Study: HX AAA w/ EVAR repair Procedure A bilateral lower extremity continuous wave Doppler with analog waveform analysis,segmental pressures,and ankle brachial indexes without exercise. Left Segmental Pressures Left brachial= 161mmHg. Left posterior tibial artery = 207mmHg. Left dorsalis pedis artery = 164mmHg. Left digit = 137 mmHg. The left posterior tibial artery waveforms are triphasic. The left dorsalis pedis waveforms are triphasic. Right Segmental Pressures Right brachial= 162mmHg. Right posterior tibial artery = 192mmHg. Right dorsalis pedis artery = 164mmHg. Right digit = 145 mmHg. The right posterior tibial artery waveforms are triphasic. The right dorsalis pedis waveforms are triphasic. Indices The right ankle brachial index by the posterior tibial artery is 1.19. The right ankle brachial index by the dorsalis pedis is 1.01. The right digital-brachial index is 0.90. The left ankle brachial index by the posterior tibial artery is 1.28. The left ankle brachial index by the dorsalis pedis is 1.01. The left digital-brachial index is 0.85. VL/Lower Ext Art Exam w/o Exercis Interpretation Summary Right MARTÍN 1.19, normal. TBI and Doppler/PVR waveforms of the right ankle normal at rest. Left MARTÍN 1.28, normal. TBI and Doppler/PVR waveforms of the left ankle normal a t rest. Ordering Physician: Juliet Summers Referring Physician: JULIET SUMMERS Performed By: Carlos A Barrientos RVT and Student
--- NOTE | 2025-07-20 07:50 | AAVD_ITS ---
Reason For Study Reason For Study: HX AO EVAR Aorta Measurements Aorta Doppler Measurements Proximal aorta measures3.30 x 3.15cm. in cross-sectional Peak systolic flow velocities within the proximal aorta axis. measure 47.1 cm/sec. Proximal aorta measures3.12cm. in longitudinal axis. Peak systolic flow velocities within the mid aorta measure Mid aorta measures3.04 x 3.09cm. in cross-sectional axis. Unable to acquire mid velocity due to bowel gas. cm/sec. Mid aorta measures3.22cm. in longitudinal axis. EVAR Noted HX EVAR Rt Prox Limb PSV - 79.7cm/s Dist AO Residual AAA measures Rt Dist Limb PSV - 48.1cm/s 4.70 x 4.69cm in short axis. 4.69cm in long axis. Lt Prox Limb PSV - 85.9 cm/s No Leak detected with pulsed wave or color doppler. Lt Dist Limb PSV - 56.4cm/s. Rt Limb Prox Short - 1.39 x 1.55cm Rt Limb Prox Long - 1.38cm Rt Limb Dist Short - 1.60 x 1.53cm Rt Limb Dist Long - 1.56cm Lt Limb Prox Short - 1.53 x 1.46cm Lt Limb Prox Long - 1.47cm Lt Limb Dist Short - 1.38 x 1.48cm Lt Limb Dist Long - 1.63cm. Left Iliac Artery Left iliac artery measures 1.86 x 2.01 cm. in the cross-sectional axis. Left iliac artery measures 1.88 cm. in the longitudinal axis. Peak systolic velocity in the left iliac artery measures 44.1 cm/sec. Right Iliac Artery Right iliac artery measures 2.01 x 1.94 cm. in the cross-sectional axis. Right iliac artery measures 1.73 cm. in the longitudinal axis. Peak systolic velocity in the right iliac artery measures 44.5 cm/sec. Procedure Aorta IVC Iliac vasculature or bypass grafts [id number]. The exam was of poor technical quality due to Body Habitus / Bowel Gas - Pt Not NPO.. Exam performed in department. VL/Abd Aortic/IVC Duplex scan Interpretation Summary Patent aortic endograft with normal velocities and no evidence of stenosis. Residual aneurysm sac 4.7 cm with no endoleak visualized. Ordering Physician: Juliet Summers Referring Physician: Sasha Jacques Performed By: Carlos A Barrientos RVT and Student
== END | disposition home or self-care (01) ==
LOC: CVS 07:49
PROVIDERS: PCP Nurse Practitioner Family; Referring Provider Physician Assistant; Visit Provider Physician Assistant
DX: Z48.812 Encounter for surgical aftercare following surgery on the circulatory system (principal)
CPT/HCPCS: 93923; 93978